=== PATIENT | female | born 1955 | race Caucasian/White ===

== ENCOUNTER 2023-07-12 20:37 | Outpatient (REF) | payer MEDICARE, MEDICAID, SELFPAY ==
[2023-07-20 15:09] LABS: Age Gdln ACOG Testing Note (.); Pap IG (Image Guided) Note (.)
== END 2023-07-12 20:38 | disposition home or self-care (01) ==
LOC: LAB 20:37
PROVIDERS: Visit Provider Physician Assistant
DX: Z01.419 Encounter for gynecological examination (general) (routine) without abnormal findings (principal)
CPT/HCPCS: G0145

== ENCOUNTER 2024-01-30 21:48 | Outpatient (REF) | payer MEDICARE, MEDICAID, SELFPAY ==
--- OUTSIDE RECORDS SUMMARY | 2024-01-30 21:53 | XMS_ITS | CCD ---
Author Organization [facility] Care Team Providers Care Manager Adobe Name Role Phone NG, AIDA S Admitting Unavailable NG, AIDA S Attending Unavailable LUZ MARIA VALADEZ Primary Care Unavailable CLINKER, GABRIELLE Consulting Unavailable CLINKER, GABRIELLE Admitting Unavailable CLINKER, GABRIELLE Attending Unavailable LUZ MARIA VALADEZ Primary Care Unavailable Valerie Morse Primary Care Provider Valerie Piña Attending Provider VALERIE MORSE Primary Care Physician [phone] Purnima Mcpherson Unavailable Unavailable MD Valerie Morse Primary Care Provider [phone] MD Valerie Morse Attending Provider [phone] MD Valerie Morse Referring Provider MD Valerie Piña Attending Provider [phone] MORALES LACY JR Attending UnavailMORALES Saucedo JR Referring Unavailabl CHRIS Alaniz Admitting Unavailab CHRIS Garnett Attending Unavailab CHRIS Garnett Referring Unavailab CHRIS Garnett Attending UnavailVALERIE Garcia Referring Unavailable MINI, VALERIE Negron Admitting Unavailable VALERIE MORSE Attending Unavailable MINI, VALERIE Negron Admitting Unavailable HILL, VALERIE Negron Attending Unavailable HILL, VALERIE Negron Admitting Unavailable HILLVALERIE Attending Unavailable RISALICECE JOHNATHAN Admitting Unavailable NICOLETTE PAYNENA Attending Unavailable CHRIS ADAN Admitting Unavailab CHRIS Garnett Attending MD Valerie Oconnor Primary Care Provider MD Valerie Piña Attending Provider JR. LACY GEORGE C Attending Unavailnaomi LACY JR., MORALES [place] Referring Unavaila BILLY España Attending Unavailable HILL, VALERIE Negron Attending Unavailable HILL, VALERIE L Referring Unavailable DIDIONLÓPEZ Attending Unavailable RISALITI, JOHNATHAN R Referring Unavailable RISALITI, JOHNATHAN R Referring Unavailable Hill, Valerie Primary Care Unavailable Haladay, Valerie Admitting Unavailable Haladay, Valerie Attending Unavailable Hill, Valerie Primary Care Unavailable Haladay, Valerie Admitting Unavailable Haladay, Valerie Attending Unavailable Hill, Valerie Primary Care Unavailable Hill, Valerie Attending Unavailable Hill, Valerie Referring Unavailable Hill, Valerie Admitting Unavailable COOK, Richie P Admitting Unavailable COOK, Richie Correia Attending Unavailable COOK, Richie P Referring Unavailable LOCO, CHRIS Lance Referring Unavailab le LOCO, CHRIS Lance Admitting Unavailab le LOCO, CHRIS Lance Attending Unavailab le Shannan, José Attending Unavailable Shannan, José Attending Unavailable Allergies Allergy Classification Reported Allergen(s) Allergy Type Date of Onset Reaction(s) Facility Unclassified (1 source) Allergy to substance [facility] (1 source) Sulfonamides (Antibiotic) Drug allergy (disorder) [address] [facility] (3 sources) Darvocet-N 100; Translations: [Darvocet-N 100] Drug allergy (disorder) [address] [facility] (13 sources) Latex; Translations: [Latex] Drug allergy rash [facility] (13 sources) Lisinopril; Translations: [lisinopril] Drug Allergy Cough (finding) [facility] (13 sources) Sulfonamides (Antibiotic); Translations: [sulfa drugs] Drug allergy [facility] (2 sources) Sulfamethoxazole ; Translations: [sulfamethoxazol e] Drug Allergy [facility] (1 source) Sulfonamides (Antibiotic) Drug allergy (disorder) 3 [facility] Repository Medications Current Medications Medication Drug Class(es) Dates Sig (Normalized) Sig (Original) Tylenol (11 sources) Start: 10-23-2019 Tylenol Oral, Refills(s) 0 Start Date: 10/23/19 Status: Ordered Albuterol (Eqv-ProAir HFA) 90 mcg/inh inhalation aerosol (10 sources) Start: 01-21-2024 End: 01-28-2024 take 2 puff(s) by inhalation every six hours Albuterol (Eqv-ProAir HFA) 90 mcg/inh inhalation aerosol 2 puff(s), Inhalation, q6hr for 7 day(s), 6.7 gm, Refill(s) 0, [facility], 165, cm, 01/21/24 11:35:00 EDT, Height/Length Dosing, 60.4, kg, 01/21/24 11:35:00 EDT, Weight Dosing Start Date: 01/21/24 Stop Date: 01/28/24 Status: Ordered Start: 09-23-2022 take 2 puff(s) by in halation every six hours Albuterol (Eqv-ProAir HFA) 90 mcg/inh inhalation aerosol 2 puff(s), Inhalation, q6hr Wheezing, 8.5 gm, Refill(s) 0, [facility], 165.1, cm, 09/23/22 13:32:00 EDT, Height/Length Dosing, 73, kg, 09/23/22 13:32:00 EDT, Weight Dosing Start Date: 09/23/22 Status: Ordered amLODIPine 5 mg oral tablet (11 sources) Dihydropyridine Calcium Channel Kourtney Start: 09-18-2016 take 2 tablets by mouth at bedtime amLODIPine 5 mg Tab 10 mg = 2 tab(s), Oral, Bedtime, Refills(s) 0, High blood pressure Start Date: 09/18/16 Status: Ordered azelastine hydrochloride 0.206 mg/actuat metered dose nasal spray (15 sources) Histamine-1 Receptor Antagonist Start: 09-23-2022 azelastine nasal 0.15% spray 1 spray(s), Nasal, BID for allergy symptoms, 30 mL, Refill(s) 0, [facility], 165.1, cm, 09/23/22 13:32:00 EDT, Height/Length Dosing, 73, kg, 09/23/22 13:32:00 EDT, Weight Dosing Start Date: 09/23/22 Status: Ordered Start: 10-23-2019 azelastine jerome al Nasal, BID, Refill(s) 0 Start Date: 10/23/19 Status: Ordered Prolia (6 sources) RANK Ligand Inhibitor Start: 10-23-2019 Prolia mg, SubCutaneous, q6mo, Refills(s) 0 Start Date: 10/23/19 Status: Ordered diclofenac sodium 0.01 mg/mg topical gel (9 sources) Nonsteroidal Anti-inflammatory Drug Start: 09-21-2022 diclofenac topical 1% gel Refill(s) 0 Start Date: 09/21/22 Status: Ordered doxycycline monohydrate 100 mg oral tablet (1 source) Tetracycline-class Drug Start: 01-21-2024 End: 01-28-2024 take 1 tablet by mouth twice daily doxycycline monohydrate 100 mg oral tablet 100 mg = 1 tab(s), Oral, BID, X 7 day(s), # 14 tab(s), Refills(s) 0, Pharmacy: [facility], 165, cm, 01/21/24 11:35:00 EDT, Height/Length Dosing, 60.4, kg, 01/21/24 11:35:00 EDT, Weight Dosing Start Date: 01/21/24 Stop Date: 01/28/24 Status: Ordered [id number] 0.3 ml EPINEPHrine 1 mg/ml auto-injector (9 sources) alpha-Adrenergic Agonist, beta-Adrenergic Agonist, Catecholamine Start: 09-21-2022 EpiPen 2-Joao 0.3 mg injectable kit Refills(s) 0 Start Date: 09/21/22 Status: Ordered ferrous gluconate 324 mg oral tablet (9 sources) Start: 09-21-2022 ferrous gluconate 324 mg (37.5 mg elemental iron) oral tablet Refills(s) 0 Start Date: 09/21/22 Status: Ordered fluticasone propionate 0.05 mg/actuat metered dose nasal spray (9 sources) Corticosteroid Start: 09-23-2022 take 1 spray(s) nasal route twice daily fluticasone Nasal 0.05 mg/inh [place] 1 spray(s), Nasal, BID, 16 gram, Refill(s) 0, each nostril, [facility], 165.1, cm, 09/23/22 13:32:00 EDT, Height/Length Dosing, 73, kg, 09/23/22 13:32:00 EDT, Weight Dosing Start Date: 09/23/22 Status: Ordered fluticasone 0.05 mg/inh Nasal [place] (6 sources) Start: 12-24-2016 fluticasone 0.05 mg/inh Nasal [place] 2 spray(s), Nasal, Daily Allergy symptoms, 16 gram, Refill(s) 0, each nostril, Allergy symptoms Start Date: 12/24/16 Status: Ordered gabapentin 300 mg oral capsule (11 sources) Anti-epileptic Agent Start: 11-10-2017 take 2 capsules by mouth at bedtime gabapentin 300 mg Cap 600 mg = 2 cap(s), Oral, Bedtime, # 60 cap(s), Refills(s) 0 Start Date: 11/10/17 Status: Ordered Plaquenil (11 sources) Antimalarial, Antirheumatic Agent Start: 02-24-2018 take 50 mg by mouth once daily in the morning Plaquenil 50 mg, Oral, qAM, Refills(s) 0, Arthritis Start Date: 02/24/18 Status: Ordered ibuprofen 800 mg oral tablet (11 sources) Nonsteroidal Anti-inflammatory Drug Start: 10-23-2019 take 1 mg by mouth three times daily ibuprofen 800 mg Tab mg tab(s), Oral, TID, Refills(s) 0 Start Date: 10/23/19 Status: Ordered losartan potassium 50 mg oral tablet (11 sources) Angiotensin 2 Receptor Kourtney Start: 10-23-2019 take 1 mg by mouth once daily losartan 50 mg Tab mg tab(s), Oral, Daily, Refills(s) 0 Start Date: 10/23/19 Status: Ordered nystatin [id number] unt/ml oral suspension (6 sources) Polyene Antifungal Start: 12-24-2016 take [id number] [IU] by mouth every six hours as needed nystatin 100,000 units/mL Oral Susp 100,000 unit(s) = 1 mL, Oral, q6hr, PRN i, # 4 fl oz, Refills(s) 0, Infection or prophylaxis for antibiotics Start Date: 12/24/16 Status: Ordered predniSONE 20 mg oral tablet (1 source) Start: 01-21-2024 End: 01-28-2024 take 3 tablets by mouth once daily predniSONE 20 mg Tab 3, Oral, Daily, X 7 day(s), # 21 tab(s), Refills(s) 0, Pharmacy: [facility], 165, cm, 01/21/24 11:35:00 EDT, Height/Length Dosing, 60.4, kg, 01/21/24 11:35:00 EDT, Weight Dosing Start Date: 01/21/24 Stop Date: 01/28/24 Status: Ordered Vitamin D3 (11 sources) Start: 02-24-2018 Vitamin D3 3000 IU, Oral, Daily, Refills(s) 0, Prophylaxis Start Date: 02/24/18 Status: Ordered Completed/Discontinued Medications Medication Drug Class(es) Dates Sig (Normalized) Sig (Original) ciprofloxacin 500 mg oral tablet (5 sources) Quinolone Antimicrobial Start: 09-08-2023 take 1 tablet by mouth once daily Cipro 500 mg Tab 500 mg = 1 tab(s), Oral, Daily, take one tab day before procedure and one tab after procedure, # 2 tab(s), Refills(s) 0, Pharmacy: [facility], 165, cm, 09/08/23 9:30:00 EDT, Height/Length Dosing, 60, kg, 09/08/23 9:30:00 EDT, Weight Dosing Start Date: 09/08/23 Status: Ordered Problems Active Problems Problem Classification Problem Date Documented Date Episodic/Chronic Acute bronchitis (1 source) Acute bronchitis; Translations: [Acute bronchitis, unspecified] Onset: 01-21-2024 Episodic Acute myocardial infarction (11 sources) Myocardial infarction 10-18-2013 Chronic Asthma (11 sources) Asthma 04-29-2013 Genitourinary symptoms and ill-defined conditions (6 sources) Stress incontinence (female) (male); Translations: [Genuine stress incontinence] Onset: 09-08-2023 Chronic Genitourinary symptoms and ill-defined conditions (20 sources) History of urinary tract infection; Translations: [Incomplete emptying of bladder] Onset: 09-08-2023 10-23-2019 Episodic Heart valve disorders (11 sources) Irregular heart beat 10-18-2013 Episodic Osteoporosis (1 source) Age-related osteoporosis without current pathological fracture; Translations: [Age-related osteoporosis without current pathological fracture] Onset: 05-30-2023 Chronic Other circulatory disease (1 source) Raynaud's syndrome without gangrene; Translations: [RAYNAUDS SYNDROME WITHOUT GANGRENE] Onset: 09-16-2017 Chronic Other circulatory disease (11 sources) Raynaud's disease 07-13-2013 Chronic Other circulatory disease (11 sources) H/O: hypertension 06-21-2012 Episodic Other connective tissue disease (11 sources) Fibromyalgia 12-26-2017 Episodic Other connective tissue disease (11 sources) Fibromyositis 04-29-2013 Episodic Other inflammatory condition of skin (11 sources) Lupus erythematosus 06-21-2012 Chronic Other nervous system disorders (4 sources) Polyneuropathy, unspecified; Translations: [POLYNEUROPATHY UNSPECIFIED] Onset: 09-14-2017 Chronic Other nutritional; endocrine; and metabolic disorders (11 sources) Body mass index 25-29 - overweight 10-23-2019 Episodic Spondylosis; intervertebral disc disorders; other back problems (1 source) Spondylosis, unspecified; Translations: [SPONDYLOSIS UNSPECIFIED] Onset: 09-16-2017 Chronic Systemic lupus erythematosus and connective tissue disorders (1 source) Systemic involvement of connective tissue, unspecified; Translations: [Systemic involvement of connective tissue, unspecified] Onset: 12-14-2023 Chronic Urinary tract infections (12 sources) Postinfective urethral stricture of female; Translations: [Postinfective urethral stricture, not elsewhere classified, female] Onset: 09-08-2023 10-23-2019 Episodic Past or Other Problems Problem Classification Problem Date Documented Da te Episodic/Chronic Immunizations and screening for infectious disease (1 source) Raised antibody titer; Translations: [Raised antibody titer] Onset: 06-15-2023 Episodic Unclassified (11 sources) multiple cysts 04-29-2013 Results Test Name Value Interpretation Reference Range Facility ED Clinical Summaryon 2023 ED Clinical Summary ED Clinical Summary [place] [id number] ED Clinical Summary Person Information Name: JING EID [place] Age: 68 Years : 1955 Sex: Female Language: Syriac PCP: VALERIE MORSE MD Marital Status: Single Visit Id: Visit Reason: Ear problem; Cough; Sinus Pain/Congestion; plugged ears, been sick for 3 days also has lupus Speciality: Acuity: 3 Enc Type: Emergency Med Service: Emergency Arrival: 01/21/2024 11:25:41 Discharge: 01/21/2024 12:41:52 LOS: 000 01:16 Checkin: 01/21/2024 11:25:41 Checkout: 01/21/2024 12:41:52 Dispo Type: Home (Routine DC) EVENTS: Event Name Event Status Request Date/Time Start Date/Time Complete Date/Time Arrive Complete 01/21/2024 11:25:41 01/21/2024 11:25:41 01/21/2024 11:25:41 Document Home Meds Request 01/21/2024 11:25:41 Triage Complete 01/21/2024 11:25:41 01/21/2024 11:35:17 01/21/2024 11:35:17 Bed Assign Complete 01/21/2024 11:27:40 01/21/2024 11:27:40 01/21/2024 11:27:40 Dr Exam Complete 01/21/2024 11:27:40 01/21/2024 11:27:46 01/21/2024 11:27:46 RN Exam Complete 01/21/2024 11:27:40 01/21/2024 11:39:46 01/21/2024 11:39:46 Registration Complete 01/21/2024 11:27:46 01/21/2024 11:27:52 01/21/2024 12:09:50 X-Ray Complete 01/21/2024 11:36:00 01/21/2024 11:50:04 01/21/2024 12:06:02 Pending Labs Complete 01/21/2024 11:36:00 01/21/2024 12:27:02 Lab Complete 01/21/2024 11:36:00 01/21/2024 12:27:02 EKG Complete 01/21/2024 11:36:00 01/21/2024 11:43:55 Wet Read Complete 01/21/2024 12:06:02 01/21/2024 12:08:17 01/21/2024 12:08:17 Reg Complete Request 01/21/2024 12:09:50 Reg Bed Request Complete 01/21/2024 12:09:50 01/21/2024 12:09:50 01/21/2024 12:09:50 Discharge Complete 01/21/2024 12:36:12 01/21/2024 12:41:58 01/21/2024 12:41:58 Transfer Complete 01/21/2024 12:41:58 01/21/2024 12:41:58 01/21/2024 12:41:58 ADDRESS: [address] [facility] [id number] PHYS DOC NOTES: MEDICAL INFORMATION: Prescriptions Given: New Medications [facility], [address], [place] [id number], [phone] doxycycline (doxycycline monohydrate 100 mg oral tablet) 1 Tablets By Mouth 2 times a day for 7 Days. Refills: 0. predniSONE (predniSONE 20 mg Tab) 3 By Mouth every day for 7 Days. Refills: 0. Medications to Continue Taking That Have Changed [facility], [address], [place] [id number], [phone] START: albuterol (Albuterol (Eqv-ProAir HFA) 90 mcg/inh inhalation aerosol) 2 Puffs Inhalation every 6 hours for 7 Days. Refills: 0. Other Medications START: albuterol (Albuterol (Eqv-ProAir HFA) 90 mcg/inh inhalation aerosol) 2 Puffs Inhalation every 6 hours as needed Wheezing. Refills: 0. Medications to Continue with No Changes Other Medications acetaminophen (Tylenol) By Mouth. amlodipine (amLODIPine 5 mg Tab) 2 Tablets By Mouth at bedtime. azelastine nasal (azelastine nasal 0.15% spray) 1 Sprays Nasal Inhalation 2 times a day as needed for allergy symptoms. Refills: 0. cholecalciferol (Vitamin D3) 3000 IU By Mouth every day. ciprofloxacin (Cipro 500 mg Tab) 1 Tablets By Mouth every day. take one tab day before procedure and one tab after procedure. Refills: 0. diclofenac topical (diclofenac topical 1% gel) epinephrine (EpiPen 2-Joao 0.3 mg injectable kit) ferrous gluconate (ferrous gluconate 324 mg (37.5 mg elemental iron) oral tablet) fluticasone nasal (fluticasone Nasal 0.05 mg/inh [place]) 1 Sprays Nasal Inhalation 2 times a day. each nostril. Refills: 0. gabapentin (gabapentin 300 mg Cap) 2 Capsules By Mouth at bedtime. hydroxychloroquine (Plaquenil) 50 Milligram By Mouth once a day (in the morning). ibuprofen (ibuprofen 800 mg Tab) By Mouth 3 times a day. losartan (losartan 50 mg Tab) By Mouth every day. PATIENT EDUCATION INFORMATION: Instructions: Follow up: With: Address: When: [address], [address] [place] [id number] Business (1) In 3 days DIAGNOSIS: Bronchitis, acute Normal [facility] ED Note-Physicianon 01-21-20 ED Note-Physician ED Note-Physician Basic Information Time Seen: José Campbell DO 01/21/2024 11:27 Chief Complaint pt to ER c/o congestion, cough. Pt states this started approx 3-4 days ago. Pt hx of lupus. pt also c/o muffled hearing and burning of the ears. History of Present Illness 68 female presents with upper respiratory infectious symptoms. Patient states that she been sick for the last 3 to 4 days she is concerned because she does have history of lupus. She states that she feels some burning in her ears bilaterally denies any sore throat has had a cough she describes this as productive. She does describe history of pulmonary disease but cannot further elaborate states that she is not a smoker. She has been taking kqce-hma-roqefwb medication she recently restarted her chronic steroids that she takes as needed as well. She was recently around a gathering of people and wonders if she could have come into contact with infectious etiology at that time. No chest pain no nausea vomiting no other associated symptoms or complaints. No other aggravating or relieving factors no other associated symptoms no other prior treatments or complaints. Family: Reviewed and noncontributory Social: lives at home Review of systems negative unless otherwise specified in the HPI. Physical Exam Vitals & Measurements T: 36.6 ?C(Oral) HR: 103(Peripheral) RR: 18 BP: 161/105 SpO2: 100% HT: 165 cm WT: 60.4 kg BMI: 22.19 Nurse's notes and vital signs reviewed. General: Alert, no acute distress, patient resting comfortably Patient is not toxic or lethargic. Skin: Warm, intact, no pallor noted. There is no evidence of rash at this time. Head: Normocephalic, atraumatic Eye: Normal conjunctiva Ears, Nose, Throat: Moist mucous membranes. No posterior pharyngeal erythema no exudate swelling shift or mass. No trisumus no stridor. Tympanic membranes unremarkable bilaterally no injection erythema no posterior effusions perforation or pus. Neck: No meningeal signs. Cardio: Regular Rate and Rhythm with normal peripheral perfusion Respiratory: No acute distress, no stridor, no retractions Abdomen: Nondistended Neurological: Appropriate for age Psychiatric: Cooperative Medical Decision Making Initial COVID testing is negative chest x-ray is benign. EKG is negative as well. Vital signs have improved. Ultimately patient will be treated with doxycycline steroids albuterol and follow-up closely in the outpatient setting as she is immunocompromised therefore antibiotics are indicated. She is to follow-up with her PCP return to ER if symptoms should change or worsen. []The patient has acute bronchitis/bronchioli tis and antibiotics were not prescribed or dispensed today.[SATISFIES MIPS PERFORMANCE] [x] The patient has acute bronchitis/bronchioli tis. Antibiotics were prescribed or dispensed because the patient meets one of the following: [MIPS PERFORMANCE EXCEPTION/EXCLUSION] [x] Patient has a medical reason for prescribing or dispensing an antibiotic. That reason is history of lung disease and being immunocompromised with her lupus and associated medications. [] Patient is currently on antibiotics or has been in the last 30 days. [] Patient's visit resulted in an inpatient admission. []The patient has acute bronchitis/bronchioli tisand antibiotics were prescribed or dispensed today. [DOES NOT SATISFY MIPS PERFORMANCE] Assessment/Plan Bronchitis, acute (J20.9: Acute bronchitis, unspecified) Orders: albuterol, 2 puff(s), Inhalation, q6hr for 7 day(s), 6.7 gm, Refill(s) 0, [facility], 165, cm, 01/21/24 11:35:00 EDT, Height/Length Dosing, 60.4, kg, 01/21/24 11:35:00 EDT, Weight Dosing doxycycline, 100 mg = 1 tab(s), Oral, BID, X 7 day(s), # 14 tab(s), Refills(s) 0, Pharmacy: [facility], 165, cm, 01/21/24 11:35:00 EDT, Height/Length Dosing, 60.4, kg, 01/21/24 11:35:00 EDT, Weight Dosing predniSONE, 3, Oral, Daily, X 7 day(s), # 21 tab(s), Refills(s) 0, Pharmacy: [facility], 165, cm, 01/21/24 11:35:00 EDT, Height/Length Dosing, 60.4, kg, 01/21/24 11:35:00 EDT, Weight Dosing ECG 12 Lead Adult Rapid COVID Antigen ([facility]) XR Chest 2 Views Disposition Plan Discharge Prescription List Prescriptions Albuterol (Eqv-ProAir HFA) 90 mcg/inh inhalation aerosol, 2 puff(s), Inhalation, q6hr doxycycline monohydrate 100 mg oral tablet, 100 mg= 1 tab(s), Oral, BID predniSONE 20 mg Tab, 3, Oral, Daily Follow-up With When Contact Information VALERIE MORSE In [address] [place], [place] [id number]- Business (1) Additional Instructions: Problem List/Past Medical History 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 Normal [facility] Comment on above: Result Comment: Elec tronically Signed By: José Campbell DO\.br\Date and Time Signed: 01/21/24 12:37 EDT ED Patient Education Noteon 01-21-2024 ED Patient Education Note ED Patient Education Note Normal [facility] ED Patient Summaryon 024 ED Patient Summary ED Patient Summary [address] [address] Patient Discharge Instructions Person Information Name: JING EID Age: 68 Years Arrival Date: 01/21/2024 11:25:41 Discharge Diagnosis: Bronchitis, acute Primary Care Physician: VALERIE MORSE MD Provider Information Primary Provider: José Campbell DO Advanced Management Scientist:None The exam and treatment you received in the Emergency Department were for an urgent problem and are not intended as complete care. It is important that you follow up with a doctor, nurse practitioner, or physician?s chef assistant for ongoing care. If your symptoms become worse or you do not improve as expected and you are unable to reach your usual health care provider, you should return to the Emergency Department. We are available 24 hours a day. JING EID has been given the following list of patient education materials, prescriptions and follow-up instructions: Follow-up Instructions: With: Address: When: VALERIE MORSE [address] [place] [address], [address] [place] [address] Business (1) In 3 days In the event that this physician does not participate in your insurance network, please consult with your insurance company to find a nearby participating provider. Patient Education Materials: A MESSAGE TO ALL PATIENTS REGARDING OPIOIDS PRESCRIPTION OPIOIDS: WHAT YOU NEED TO KNOW Prescription opioids can be used to help relieve yturacyb-ei-gpchos pain and are often prescribed following a surgery or injury, or for certain health conditions. These medications can be an important part of the treatment but also come with serious risks. It is important to work with your healthcare provider to make sure you are getting the safest, most effective care. WHAT ARE THE RISKS AND SIDE EFFECTS OF OPIOID USE? Prescription opioids carry serious risks of addiction and overdose, especially with prolonged use. An opioid overdose, often marked by slowed breathing, can cause sudden . The use of prescription opioids can have a number of side effects as well, even when taken as directed: ? Tolerance?meaning you might need to take more of the medication for the same pain relief ? Physical dependence?meaning you have symptoms of withdrawal when a medication is stopped ? Increased sensitivity to pain ? Constipation ? Nausea, vomiting, and dry mouth ? Sleepiness and dizziness ? Confusion ? Depression ? Low levels of testosterone that can result in lower sex drive, energy, and strength ? Itching and sweating RISKS ARE GREATER WITH: ? History of drug misuse, substance use disorder, or overdose ? Mental health conditions (such as depression or anxiety) ? Sleep apnea ? Older age (65 years and older) ? Avoid alcohol while taking prescription opioids. Also, unless specifically advised by your health care provider, medications to avoid include: ? Benzodiazepines (such as Xanax or Valium) ? Muscle relaxants (such as Soma or Flexeril) ? Hypnotics (such as Ambien or Lunesta) ? Other prescription opioids KNOW YOUR OPTIONS Talk to your health care provider about ways to manage your pain that don?t involve prescription opioids. Some of these options may actually work better and have fewer risks and side effects. Options may include: ? Pain relievers such as acetaminophen, ibuprofen, and naproxen ? Some medication that are also used for depression or seizures ? Physical therapy and exercise ? Cognitive behavioral therapy, a psychological, goal-directed approach, in which patients learn how to modify physical, behavioral, and emotional triggers of pain and stress. IF YOU ARE PRESCRIBED OPIOIDS FOR PAIN: ? Never take opioids in greater amounts or more often than prescribed. ? Follow up with your primary health care provider. o Work together to create a plan on how to manage your pain. o Talk about ways to help manage your pain that don?t involve prescription opioids. o Talk about any and all concerns and side effects. ? Help prevent misuse and abuse o Never sell or share prescription opioids. o Never use another person?s prescription opioids. ? Store prescription opioids in a secure place and out of reach of others (this may include visitors, children, friends, and family). ? Safely dispose of unused prescription opioids: Find your community drug take-back program or your pharmacy mail-back program, or flush them down the toilet, following guidance from the Food and Drug Administration (www.fda.gov/Drugs/Re sourcesForYou). ? Visit www.cdc.gov/drugoverd ose to learn about the risks of opioids abuse and overdose. ? If you believe you may be struggling with addiction, tell your health caregiver services home and ask for guidance or call SAM[employer]?S National Helpline at 3-877-448-EYPK. v Source: [place] Department of Health and (more content not included)... Normal [facility] MICRO OTHER TESTSOrdered By: Della Ewing on 01-21-2024 Rapid COV Int NEG Ctl Pass (01/21/24 11:45 AM) Normal [facility] Rapid COV Int POS Ctl Pass (01/21/24 11:45 AM) Normal [facility] SARS-CoV+SARS-CoV-2 (COVID-19) Ag IA.rapid Ql (Resp) Not Detected 1 (01/21/24 11:45 AM) Normal Not Detected [facility] Comment on above: Interpretive Data: Anel yao Yast Veritor System for Rapid Detection of SARS-CoV-2 is a chromatographic digital immunoassay intended for the direct and qualitative detection of SARS-CoV-2 nucleocapsid antigens in nasal swabs from individuals who are suspected of COVID-19 by their healthcare provider within the first five days of the onset of symptoms. Negative results should be treated as presumptive, do not rule out SARS-CoV-2 infection and should not be used as the sole basis for treatment or patient management decisions, including infection control decisions. Negative results should be considered in the context of a patient s recent exposures, history and the presence of clinical signs and symptoms consistent with COVID-19, and confirmed with a molecular assay, if necessary, for patient management. For in vitro diagnostic use. In the [place], only for use under an Emergency Use Authorization. In the [place], this test has not been FDA cleared or approved; this test has been authorized by FDA under an EUA for use by authorized laboratories; use by laboratories certified under the CLIA, 42 U.S.C. 263a, that meet requirements to perform moderate, high, or waived complexity tests and at the Point of Care (POC), i.e., in patient care settings operating under a CLIA Certificate of Waiver, Certificate of Compliance, or Certificate of Accreditation. This test has been authorized only for the detection of proteins from SARS-CoV-2, not for any other viruses or pathogens; and, in the [facility], this test is only authorized for the duration of the declaration that circumstances exist justifying the authorization of emergency use of in vitro diagnostics for detection and/or diagnosis of the virus that causes COVID-19 under Section 564(b)(1) of the Act, 21 U.S.C. 360bbb-3(b)(1), unless the authorization is terminated or revoked sooner. Rapid COVID Antigen ([facility])on 01-21-2024 Rapid COV Int NEG Ctl Pass Normal [facility] Comment on above: Performed By: #### 2 [id number] #### Brown [facility] [address] [place] [address] Rapid COV Int POS Ctl Pass Normal [facility] Comment on above: Performed By: #### 2 [id number] #### Kevin [facility] [address] [place] [address] SARS-CoV+SARS-CoV-2 (COVID-19) Ag IA.rapid Ql (Resp) Not detected Normal Not Detected [facility] Comment on above: Result Comment: The WeDidIt? System for Rapid Detection of SARS-CoV-2 is a chromatographic digital immunoassay intended for the direct and qualitative detection of SARS-CoV-2 nucleocapsid antigens in nasal swabs from individuals who are suspected of COVID-19 by their healthcare provider within the first five days of the onset of symptoms. Negative results should be treated as presumptive, do not rule out SARS-CoV-2 infection and should not be used as the sole basis for treatment or patient management decisions, including infection control decisions. Negative results should be considered in the context of a patient?s recent exposures, history and the presence of clinical signs and symptoms consistent with COVID-19, and confirmed with a molecular assay, if necessary, for patient management. For in vitro diagnostic use. In the [place], only for use under an Emergency Use Authorization. In the [place], this test has not been FDA cleared or approved; this test has been authorized by FDA under an EUA for use by authorized laboratories; use by laboratories certified under the CLIA, 42 U.S.C. ?263a, that meet requirements to perform moderate, high, or waived complexity tests and at the Point of Care (POC), i.e., in patient care settings operating under a CLIA Certificate of Waiver, Certificate of Compliance, or Certificate of Accreditation. This test has been authorized only for the detection of proteins from SARS-CoV-2, not for any other viruses or pathogens; and, in the [place], this test is only authorized for the duration of the declaration that circumstances exist justifying the authorization of emergency use of in vitro diagnostics for detection and/or diagnosis of the virus that causes COVID-19 under Section 564(b)(1) of the Act, 21 U.S.C. ? 360bbb-3(b)(1), unless the authorization is terminated or revoked sooner. Performed By: #### 2 [id number] #### [facility] [address] [place] [address] XR Chest 2 Viewson XR Chest 2 Views Exam Date/Time: 01/21/2024 12:06 EDT Reason for Exam: Difficulty breathing Report IMPRESSION: No acute radiographic abnormality. EXAMINATION: XR Chest 2 Views Clinical History: Difficulty breathing Comparison: 01/25/2018. RESULT: No consolidation. Hyperinflated lungs. No pleural effusion. No pneumothorax. Normal cardiomediastinal silhouette. No acute osseous findings. Ordering Provider: José Campbell FINAL REPORT Dictated: 01/21/2024 12:14 pm Bassem Brar MD Signed (Electronic Signature): 01/21/2024 12:14 pm Signed by: Bassem Brar MD Transcribed by: MADALYN Technologist: SCHUYLER Technical Comments Radiation Dose: Ka,r in mGy = na DAP = na Normal [facility] Automated basophil %Ordered By: Valerie Piña on 12-14-2023 Basophils/100 WBC (Bld) 0.1 % Normal . [facility] Comment on above: Performed By: #### C REAT, CRP, CBC, ESR, CK, ADDONUAPLUS #### [facility] [address] [place] [address] [place] #### C3, C4 #### [facility] , Automated basophil countOrde red By: Valerie Piña on 12-14-2023 Basophils (Bld) [#/Vol] 0.0 10*3/uL Normal 0.0-0.2 [facility] Comment on above: Performed By: #### C REAT, CRP, CBC, ESR, CK, ADDONUAPLUS #### [facility] [address] [place] [address] [place] #### C3, C4 #### [facility] , Automated blood monocyte cou ntOrdered By: Valerie Piña on 12-14-2023 Monocytes (Bld) [#/Vol] 0.5 10*3/uL Normal 0.0-0.8 [facility] Comment on above: Performed By: #### C REAT, CRP, CBC, ESR, CK, ADDONUAPLUS #### [place] [address] [place] #### C3, C4 #### [facility] , Automated eosinophil %Ordere d By: Valerie Piña on 12-14-2023 Eosinophils/100 WBC (Bld) 0.0 % Normal . [facility] Comment on above: Performed By: #### C REAT, CRP, CBC, ESR, CK, ADDONUAPLUS #### [place] [address] [place] #### C3, C4 #### [facility] , Automated eosinophil countOr dered By: Valerie Piña on 12-14-2023 Eosinophils (Bld) [#/Vol] 0.0 10*3/uL Normal 0.0-0.45 [facility] Comment on above: Performed By: #### C REAT, CRP, CBC, ESR, CK, ADDONUAPLUS #### [place] [address] [place] #### C3, C4 #### [facility] , Automated monocyte %Ordered By: Valerie Piña on 12-14-2023 Monocytes/100 WBC (Bld) 4.5 % Normal . [facility] Comment on above: Performed By: #### C REAT, CRP, CBC, ESR, CK, ADDONUAPLUS #### [facility] [address] [place] [address] [place] #### C3, C4 #### [facility] , Automated neutrophil %Ordere d By: Valerie Piña on 12-14-2023 Neutrophils/100 WBC (Bld) 87.5 % Normal . [facility] Comment on above: Performed By: #### C REAT, CRP, CBC, ESR, CK, ADDONUAPLUS #### [place] [address] [place] #### C3, C4 #### [facility] , Bacteria [Presence] in Urine by AutomatedOrdered By: Valerie Piña on 12-14-2023 Bacteria Auto Ql (U) None seen [HPF] None Seen [facility] Bilirubin Test strip Ql (U)O rdered By: Valerie Piña on 12-14-2023 Bilirubin Ql (U) Negative Negative [facility] C reactive protein [Mass/vol ume] in Serum or PlasmaOrdered By: Valerie Piña on 12-14-2023 CRP [Mass/Vol] < 0.5 mg/dL 0.0-0.5 [facility] C-Reactive Proteinon 024 CRP [Mass/Vol] mg/L Normal 0.0-0.5 [facility] Comment on above: Result Comment: PERF ORMED BY: [place] [address] PATHOLOGIST INSTRUCTIONAL FACILITATOR VENKATA SANCHEZ M.D. Performed By: #### C REAT, CRP, CBC, ESR, CK, ADDONUAPLUS #### [address] #### C3, C4 #### [facility] , Color of Urine by AutoOrdere d By: Valerie Piña on 12-14-2023 Color (U) Light-yellow Normal Yellow [facility] Comment on above: Order Comment: Name Collection Type:: Clean-Voided Midstream Performed By: #### E SR, CBC, CRP, ADDONUAPLUS, CREAT #### [address] #### C4, C3 #### [facility] , Complement C3on 12-14-2023 Complement C3 147 mg/dL Normal 82-167 [facility] Comment on above: Result Comment: Perf ormed at: - [facility] [address] [id number] [place] Worker: Gilberto Ward PhD, Phone: [phone] Performed By: #### C REAT, CRP, CBC, ESR, CK, ADDONUAPLUS #### [place] [address] [place] #### C3, C4 #### [facility] , Complement C4on 12-14-2023 Complement C4 28 mg/dL Normal 12-38 [facility] Comment on above: Result Comment: PERF ORMED BY: [place] [address] PATHOLOGIST INSTRUCTIONAL FACILITATOR VENKATA SANCHEZ M.D. Performed By: #### C REAT, CRP, CBC, ESR, CK, ADDONUAPLUS #### [address] #### C3, C4 #### [facility] , Complete Blood Count Auto Di ffon 12-14-2023 Mean Corpuscular HGB Conc 33.8 g/dL Normal 32.0-35.0 [facility] Comment on above: Performed By: #### C REAT, CRP, CBC, ESR, CK, ADDONUAPLUS #### [address] #### C3, C4 #### [facility] , NRBC% 0.1 /100{WBC} Normal 0-0.5 [facility] Comment on above: Performed By: #### C REAT, CRP, CBC, ESR, CK, ADDONUAPLUS #### [address] #### C3, C4 #### [facility] , Creatinineon 12-14-2023 GFR/1.73 sq M.predicted MDRD (S/P/Bld) [Vol rate/Area] mL/min/{1.73_m2} Normal [facility] Comment on above: Performed By: #### E SR, CBC, CRP, ADDONUAPLUS, CREAT #### [place] [address] [place] #### C4, C3 #### [facility] , Creatinine [Mass/volume] in Serum or PlasmaOrdered By: Valerie Piña on 12-14-2023 Creatinine [Mass/Vol] 0.74 mg/dL Normal 0.60-1.20 [facility] Comment on above: Performed By: #### E SR, CBC, CRP, ADDONUAPLUS, CREAT #### [address] #### C4, C3 #### [facility] , Dipstick and Microscopicon 0 12-14-2023 Bacteria,Urine None Seen Normal None Seen [facility] Comment on above: Order Comment: Name Collection Type:: Clean-Voided Midstream Performed By: #### E SR, CBC, CRP, ADDONUAPLUS, CREAT #### [address] #### C4, C3 #### [facility] , Bilirubin,Urine Negative Normal Negative [facility] Comment on above: Order Comment: Name Collection Type:: Clean-Voided Midstream Performed By: #### E SR, CBC, CRP, ADDONUAPLUS, CREAT #### [address] #### C4, C3 #### [facility] , Glucose Ql (U) Normal Normal Normal [facility] Comment on above: Order Comment: Name Collection Type:: Clean-Voided Midstream Performed By: #### E SR, CBC, CRP, ADDONUAPLUS, CREAT #### [address] #### C4, C3 #### [facility] , Hyaline Casts,Urine 9-19 High 0-8 [facility] Comment on above: Order Comment: Name Collection Type:: Clean-Voided Midstream Result Comment: PERF ORMED BY: [place] [address] PATHOLOGIST INSTRUCTIONAL FACILITATOR VENKATA SANCHEZ M.D. Performed By: #### E SR, CBC, CRP, ADDONUAPLUS, CREAT #### [place] [address] [place] #### C4, C3 #### [facility] , Nitrite,Urine Negative Normal Negative [facility] Comment on above: Order Comment: Name Collection Type:: Clean-Voided Midstream Performed By: #### E SR, CBC, CRP, ADDONUAPLUS, CREAT #### [address] #### C4, C3 #### [facility] , Occult Blood,Urine 1+ High Negative [facility] Comment on above: Order Comment: Name Collection Type:: Clean-Voided Midstream Performed By: #### E SR, CBC, CRP, ADDONUAPLUS, CREAT #### [address] #### C4, C3 #### [facility] , Protein,Urine Negative Normal Negative [facility] Comment on above: Order Comment: Name Collection Type:: Clean-Voided Midstream Performed By: #### E SR, CBC, CRP, ADDONUAPLUS, CREAT #### [address] #### C4, C3 #### [facility] , RBC,Urine 3-4 Normal 0-4 [facility] Comment on above: Order Comment: Name Collection Type:: Clean-Voided Midstream Performed By: #### E SR, CBC, CRP, ADDONUAPLUS, CREAT #### [address] #### C4, C3 #### [facility] , Specificy [place],Urine 1.010 Normal 1.001-1.030 [facility] Comment on above: Order Comment: Name Collection Type:: Clean-Voided Midstream Performed By: #### E SR, CBC, CRP, ADDONUAPLUS, CREAT #### [address] #### C4, C3 #### [facility] , Squamous Epithelial Cell,Urine 1-2 Normal 0-2 [facility] Comment on above: Order Comment: Name Collection Type:: Clean-Voided Midstream Performed By: #### E SR, CBC, CRP, ADDONUAPLUS, CREAT #### [address] #### C4, C3 #### [facility] , Urobilinogen,Urine Normal Normal Normal [facility] Comment on above: Order Comment: Name Collection Type:: Clean-Voided Midstream Performed By: #### E SR, CBC, CRP, ADDONUAPLUS, CREAT #### [address] #### C4, C3 #### [facility] , WBC,Urine 1-2 Normal 0-4 [facility] Comment on above: Order Comment: Name Collection Type:: Clean-Voided Midstream Performed By: #### E SR, CBC, CRP, ADDONUAPLUS, CREAT #### [address] #### C4, C3 #### [facility] , Epithelial cells.squamous [# /area] in Urine sediment by Automated countOrdered By: Valerie Piña on 12-14-2023 Epithelial cells.squamous Auto (Urine sed) [#/Area] 1-2 [HPF] 0-2 [facility] Erythrocyte Sedimentation Ra bettie 12-14-2023 ESR (Bld) [Velocity] 13 mm/h Normal 0-29 [facility] Comment on above: Result Comment: PERF ORMED BY: [place] [address] PATHOLOGIST INSTRUCTIONAL FACILITATOR VENKATA SANCHEZ M.D. Performed By: #### C REAT, CRP, CBC, ESR, CK, ADDONUAPLUS #### [address] #### C3, C4 #### [facility] , Erythrocyte distribution wid th [Ratio] by Automated countOrdered By: Valerie Piña on 12-14-2023 Erythrocyte distribution width (RBC) [Ratio] 13.2 % Normal 11.9-15.3 [facility] Comment on above: Performed By: #### C REAT, CRP, CBC, ESR, CK, ADDONUAPLUS #### [address] #### C3, C4 #### [facility] , Erythrocyte sedimentation ra te by Photometric methodOrdered By: Valerie Piña on 12-14-2023 ESR Photometric method (Bld) [Velocity] 13 mm/hr 0-29 [facility] Erythrocytes [#/area] in Uri ne sediment by Automated countOrdered By: Valerie Piña on 12-14-2023 RBC Auto (Urine sed) [#/Area] 3-4 [HPF] 0-4 [facility] Erythrocytes [#/volume] in B lood by Automated countOrdered By: Valerie Piña on 12-14-2023 RBC (Bld) [#/Vol] 4.91 10*6/uL Normal 3.60-5.00 [facility] Comment on above: Performed By: #### C REAT, CRP, CBC, ESR, CK, ADDONUAPLUS #### [place] [address] [place] #### C3, C4 #### [facility] , Glucose [Mass/volume] in Uri ne by Test stripOrdered By: Valerie Piña on 12-14-2023 Glucose Test strip (U) [Mass/Vol] Normal mg/dL Normal [facility] Hematocrit [Volume Fraction] of Blood by Automated countOrdered By: Valerie Piña on 12-14-2023 Hematocrit (Bld) [Volume fraction] 45.9 % Normal 34.0-46.4 [facility] Comment on above: Performed By: #### C REAT, CRP, CBC, ESR, CK, ADDONUAPLUS #### [place] [address] [place] #### C3, C4 #### [facility] , Hemoglobin Test strip Ql (U) Ordered By: Valerie Piña on 12-14-2023 Hemoglobin Ql (U) 1+ High Negative [facility] Hemoglobin [Mass/volume] in BloodOrdered By: Valerie Piña on 12-14-2023 Hemoglobin (Bld) [Mass/Vol] 15.5 g/dL High 11.8-15.4 [facility] Comment on above: Performed By: #### C REAT, CRP, CBC, ESR, CK, ADDONUAPLUS #### [facility] [address] [place] [address] [place] #### C3, C4 #### [facility] , Hyaline casts [#/area] in Ur ine sediment by Automated countOrdered By: Valerie Piña on 12-14-2023 Hyaline casts Auto (Urine sed) [#/Area] 9-19 [LPF] High 0-8 [facility] Ketones [Presence] in Urine by Test stripOrdered By: Valerie Piña on 12-14-2023 Ketones Ql (U) Negative Normal Negative [facility] Comment on above: Order Comment: Name Collection Type:: Clean-Voided Midstream Performed By: #### E SR, CBC, CRP, ADDONUAPLUS, CREAT #### [place] [address] [place] #### C4, C3 #### [facility] , Leukocyte esterase [Presence ] in Urine by Test stripOrdered By: Valerie Piña on 12-14-2023 Leukocyte esterase Test strip Ql (U) Negative Normal Negative [facility] Comment on above: Order Comment: Name Collection Type:: Clean-Voided Midstream Performed By: #### E SR, CBC, CRP, ADDONUAPLUS, CREAT #### [place] [address] [place] #### C4, C3 #### [facility] , Leukocytes [#/area] in Urine sediment by Automated countOrdered By: Valerie Piña on 12-14-2023 WBC Auto (Urine sed) [#/Area] 1-2 [HPF] 0-4 [facility] Leukocytes [#/volume] correc serafin for nucleated erythrocytes in Blood by Automated counOrdered By: Valerie Piña on 12-14-2023 WBC corrected for nucl RBC Auto (Bld) [#/Vol] 11.5 10*3/uL 3.8-11.6 [facility] Leukocytes [#/volume] in Blo od by Automated countOrdered By: Valerie Piña on 12-14-2023 WBC (Bld) [#/Vol] 11.5 10*3/uL Normal 3.8-11.6 [facility] Comment on above: Performed By: #### C REAT, CRP, CBC, ESR, CK, ADDONUAPLUS #### [facility] [address] [place] [address] #### C3, C4 #### [facility] , Lymphocytes [#/volume] in Bl ood by Automated countOrdered By: Valerie Piña on 12-14-2023 Lymphocytes (Bld) [#/Vol] 0.9 10*3/uL Low 1.00-4.8 [facility] Comment on above: Performed By: #### C REAT, CRP, CBC, ESR, CK, ADDONUAPLUS #### [place] [address] [place] #### C3, C4 #### [facility] , Lymphocytes/100 leukocytes i n Blood by Automated countOrdered By: Valerie Piña on 12-14-2023 Lymphocytes/100 WBC (Bld) 7.9 % Normal . [facility] Comment on above: Performed By: #### C REAT, CRP, CBC, ESR, CK, ADDONUAPLUS #### [facility] [address] [place] [address] [place] #### C3, C4 #### [facility] , MCH [Entitic mass] by Automa serafin countOrdered By: Valerie Piña on 12-14-2023 MCH (RBC) [Entitic mass] 31.6 pg Normal 24.7-34.3 [facility] Comment on above: Performed By: #### C REAT, CRP, CBC, ESR, CK, ADDONUAPLUS #### [facility] [address] [place] [address] [place] #### C3, C4 #### [facility] , MCHC Auto (RBC) [Mass/Vol]Or dered By: Valerie Piña on 12-14-2023 MCHC (RBC) [Mass/Vol] 33.8 g/dL 32.0-35.0 [facility] MCV [Entitic volume] by Auto mated countOrdered By: Valerie Piña on 12-14-2023 MCV (RBC) [Entitic vol] 93.4 fL Normal 80-100 [facility] Comment on above: Performed By: #### C REAT, CRP, CBC, ESR, CK, ADDONUAPLUS #### [facility] [address] [place] [address] #### C3, C4 #### [facility] , Neutrophils [#/volume] in Bl ood by Automated countOrdered By: Valerie Piña on 12-14-2023 Neutrophils (Bld) [#/Vol] 10.1 10*3/uL High 1.8-7.7 [facility] Comment on above: Performed By: #### C REAT, CRP, CBC, ESR, CK, ADDONUAPLUS #### [facility] [address] [place] [address] [place] #### C3, C4 #### [facility] , Nitrite Test strip Ql (U)Ord ered By: Valerie Piña on 12-14-2023 Nitrite Ql (U) Negative Negative [facility] No Panel InformationOrdered By: Valerie Piña on 12-14-2023 Estimated GFR (CKD-EPI) > 60.0 mL/Min [facility] Creatinine Clearance (Chem N/A [facility] Nucleated erythrocytes [Pres ence] in Blood by Automated countOrdered By: Valerie Piña on 12-14-2023 Nucleated RBC Auto Ql (Bld) 0.1 /100{WBC} 0-0.5 [facility] Platelet mean volume [Entiti c volume] in Blood by Automated countOrdered By: Valerie Piña on 12-14-2023 Platelet mean volume (Bld) [Entitic vol] 7.8 fL Normal 6.3-10.7 [facility] Comment on above: Performed By: #### C REAT, CRP, CBC, ESR, CK, ADDONUAPLUS #### [facility] [address] [place] [address] #### C3, C4 #### [facility] , Platelets [#/volume] in Bloo d by Automated countOrdered By: Valerie Piña on 12-14-2023 Platelets (Bld) [#/Vol] 269 10*3/uL Normal 150-450 [facility] Comment on above: Performed By: #### C REAT, CRP, CBC, ESR, CK, ADDONUAPLUS #### [address] #### C3, C4 #### [facility] , Protein Test strip (U) [Mass /Vol]Ordered By: Valerie Piña on 12-14-2023 Protein (U) [Mass/Vol] Negative Negative [facility] Specific gravity Test strip (U) [Rel density]Ordered By: Valerie Piña on 12-14-2023 Specific gravity (U) [Rel density] 1.010 1.001-1.030 [facility] Urine appearanceOrdered By: Valerie Piña on 12-14-2023 Appearance (U) Clear Normal Clear [facility] Comment on above: Order Comment: Name Collection Type:: Clean-Voided Midstream Performed By: #### E SR, CBC, CRP, ADDONUAPLUS, CREAT #### [place] [address] [place] #### C4, C3 #### [facility] , Urobilinogen Test strip (U) [Mass/Vol]Ordered By: Valerie Piña on 12-14-2023 Urobilinogen (U) [Mass/Vol] Normal mg/dL Normal [facility] pH of Urine by Test stripOrd ered By: Valerie Piña on 12-14-2023 pH (U) 5.5 [pH] Normal 5.0-9.0 [facility] Comment on above: Order Comment: Name Collection Type:: Clean-Voided Midstream Performed By: #### E SR, CBC, CRP, ADDONUAPLUS, CREAT #### [facility] [address] [place] [address] [place] #### C4, C3 #### [facility] , Inpatient Patient Summaryon 11-07-2023 Inpatient Patient Summary Inpatient Patient Summary [place] [id number] Clinical Summary Person Information Name: JING EID Age: 68 Years : 1955 Sex: Female PCP: VALERIE MORSE MD Marital Status: Single Race: White Ethnicity: Non- or Language: Syriac Visit Id: Visit Reason: HEMATURIA, URINARY INCONTINENCE Speciality: Acuity: Enc Type: Outpatient Med Service: Surgery Arrival: 11/07/2023 13:43:11 Discharge: Dispo Type: Address: [address] [place] [id number] Provider Notes: Diagnosis: Problems Active Stress incontinence Raynaud's disease LE - Lupus 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 Microscopic hematuria Nocturia Frequency of urination BMI 28.0-28.9,adult Incomplete bladder emptying H/O urinary tract infection Postinfective urethral stricture in female Fibromyalgia Smoking Status: Functional Status: Sensory Deficits: History of Falls: Mobility Assistance Prior to Admission: ADLs: Current Level of Assistance for Self-Care/Mobility: Cognitive Status: Allergies sulfa drugs Latex (rash) lisinopril (Cough) Laboratory or Other Results This Visit (last charted value for your 11/07/2023 visit) No Laboratory or Other Results This Visit Measurements: Height: Weight: Blood Pressure: Not Valued / Not Valued BMI: Procedures No Procedures Documented Immunizations No Immunizations Documented This Visit Final Med List: acetaminophen (Tylenol) By Mouth. albuterol (Albuterol (Eqv-ProAir HFA) 90 mcg/inh inhalation aerosol) 2 Puffs Inhalation every 6 hours as needed Wheezing. Refills: 0. amlodipine (amLODIPine 5 mg Tab) 2 Tablets By Mouth at bedtime. azelastine nasal (azelastine nasal 0.15% spray) 1 Sprays Nasal Inhalation 2 times a day as needed for allergy symptoms. Refills: 0. cholecalciferol (Vitamin D3) 3000 IU By Mouth every day. ciprofloxacin (Cipro 500 mg Tab) 1 Tablets By Mouth every day. take one tab day before procedure and one tab after procedure. Refills: 0. diclofenac topical (diclofenac topical 1% gel) epinephrine (EpiPen 2-Joao 0.3 mg injectable kit) ferrous gluconate (ferrous gluconate 324 mg (37.5 mg elemental iron) oral tablet) fluticasone nasal (fluticasone Nasal 0.05 mg/inh [place]) 1 Sprays Nasal Inhalation 2 times a day. each nostril. Refills: 0. gabapentin (gabapentin 300 mg Cap) 2 Capsules By Mouth at bedtime. hydroxychloroquine (Plaquenil) 50 Milligram By Mouth once a day (in the morning). ibuprofen (ibuprofen 800 mg Tab) By Mouth 3 times a day. losartan (losartan 50 mg Tab) By Mouth every day. Care Team Members: Attending Physician: Richie LI MD Consulting Physician: Referring Physician: Richie LI MD Follow up: With: Address: When: Richie LI [address] [place] [address], [address], [place] [id number] [facility] (1) Within 6 months Comments: Please make a follow-up visit with one of our SEDA's. You had seen Anabel Adan PA-C previously. Please finish your antibiotics and have a great day! I will consider the blood in the urine workup complete at this point. Patient Education Information: EU - Cystoscopy Discharge Instructions (Custom) Brandie [facility] Main OR Intraoperative Recor don 11-07-2023 Main OR Intraoperative Record Main OR Intraoperative Record IntraOp Document Type FTURO Summary Primary Physician: Richie LI MD Finalized Date/Time: 11/07/23 14:07:21 Pt. Name: JING EID /Sex: 1955 Female Med Rec #: [id number] Physician: Richie LI MD Financial #: [id number] Pt. Type: O Room/Bed: / Admit/Disch: 11/07/23 13:43:11 - Institution: Case Times FTURO Entry 1 Patient Times In Room 11/07/23 13:56:00 Out Room 11/07/23 14:06:00 Procedure Times Start 11/07/23 14:00:00 Stop 11/07/23 14:02:00 Anesthesia Times Last Modified By: Heather Hu 11/07/23 14:07:07 Case Attendance FTURO Entry 1 Entry 2 Entry 3 Case Attendee Richie LI MD, Kelsie E McClain POWER LINE LINEMANHaydee Role Performed Surgeon - Primary Home Paraprofessional - Primary Scrub - Primary Time In 11/07/23 13:56:00 11/07/23 13:56:00 11/07/23 13:56:00 Time Out 11/07/23 14:06:00 11/07/23 14:06:00 11/07/23 14:06:00 Procedure CYSTOSCOPY LOCAL WITH CYSTOSCOPY LOCAL WITH CYSTOSCOPY LOCAL WITH URETHRAL DILATION(.) URETHRAL DILATION(.) URETHRAL DILATION(.) Comments Last Modified By: Heather Hu Kelsie E Burgderfer, Kelsie E 11/07/23 14:07:08 11/07/23 14:07:08 11/07/23 14:07:08 Surgical Procedures FTURO Entry 1 Procedure Description Procedure CYSTOSCOPY LOCAL WITH Modifiers . URETHRAL DILATION Surgeon Description CYSTO LOCAL Primary Procedure Yes Primary Surgeon Richie LI MD Start 11/07/23 14:00:00 Stop 11/07/23 14:02:00 Anesthesia Type Local Surgical Service Urology Wound Class 2 - Clean-Contaminated Last Modified By: Heather Hu 11/07/23 14:07:09 General Case Data FTURO Pre-Care Text: Classifies surgical wound, implements aseptic technique, initiates traffic control Entry 1 Case Information OR URO 1 FT Case Level None Wound Class 2 - Clean-Contaminated Specialty Urology Preop Diagnosis HEMATURIA, URINARY Postop Same As Preop Yes INCONTINENCE Postop Diagnosis HEMATURIA, URINARY Outcomes Met? Yes INCONTINENCE Last Modified By: Heather Hu 11/07/23 13:57:12 Post-Care Text: The patient is free from signs and symptoms of infection EU IntraOp - FTURO Pre-Care Text: Implements protective measures prior to operative or invasive procedure, confirms identity before the operative or invasive procedure, verifies operative procedure, surgical site, and laterality Entry 1 EU Perioperative Protocols Procedure(s) CYSTOSCOPY LOCAL WITH Patient Identity Birthday, ID Band URETHRAL DILATION(.) Verified (select at Check, Patient least 2): Participation Consents / H and P HandP, Surgery/Procedure Operative Site N/A Verified Consent Marking Verified Surgical Site Yes Laterality Verified n/a Verified Procedure Verified Yes Correct Patient Yes Position Verified Availability Equipment, Medication Time Out GUILLERMO DOSS, Richie Correia, Verified (If Participants Heather Hu, Applicable) Haydee Stanton CST Time Out Complete 11/07/23 13:58:00 Allergies Reviewed? Yes Allergies Reviewed Self/Patient With Body Position Low Lithotomy Prep Area VAGINA Prep Agents Betadine Solution Skin. Condition Unable to Visualize Description N/A Additional None Specimens Comment N/A Specimens Collected Vitals - EU Blood Pressure 159/95 Pulse 93 bpm Respirations 14 br/min SPO2 99 % EBL 0 IandO - EU Total Intake 0 mL Total Output 0 mL Outcomes Met? Yes Last Modified By: Hetaher Hu 11/07/23 13:59:22 Post-Care Text: The patient is free from signs and symptoms of injury caused by extraneous objects Sign Out FTURO Entry 1 Before Patient Leaves OR Nurse verbally Yes Nurse verbally n/a confirms with the confirms with the team the name of team that the procedure(s) instrument, sponge, recorded and needle counts are correct (or N/A) Nurse verbally n/a Nurse verbally Yes confirms with the confirms with the team how the team whether there specimen is labeled are any equipment (including patient problems to be name), if applicable addressed Sign Out Complete 11/07/23 14:02:00 Last Modified By: Heather Hu 11/07/23 14:02:54 Case Comments Finalized By: Heather Hu Document Signatures Signed By: Heather Hu 11/07/23 14:07 Heather Hu 11/07/23 14:07 Normal [facility] Main OR Preoperative Recordo n 11-07-2023 Main OR Preoperative Record Main OR Preoperative Record Holding Area Document Type FTURO Summary Primary Physician: Richie LI MD Finalized Date/Time: 11/07/23 13:57:59 Pt. Name: JING EID Yue Anthony/Sex: 1955 Female Med Rec #: [id number] Physician: Richie LI MD Financial #: [id number] Pt. Type: O Room/Bed: / Admit/Disch: 11/07/23 13:43:11 - Institution: Case Times Holding FTURO Pre-Care Text: Verifies consent for planned procedure, identifies individual values and wishes concerning care, includes family members in perioperative teaching Secures patient's records' belongings, and valuables, maintains patient's dignity and privacy, and maintains patient confidentiality Entry 1 In Holding 11/07/23 13:50:00 Outcomes Met? Yes Last Modified By: Gilma MIRELES, Roxanne CASTANEDA 11/07/23 13:50:31 Post-Care Text: The patient participates in decisions affecting his or her perioperative plan of care The patient's right to privacy is maintained Surgery Checklist FTURO Entry 1 Patient Birthday, ID Band Procedure History and Physical, Identification: Check, Patient Verification: Surgical Consent, With Participation Patient Personal Items clothes Limitations: none Comment: Complaints of Pain: No Skin Integrity Unable to Visualize Vitals - EU Blood Pressure 159/95 Pulse 93 bpm Respirations 14 br/min SPO2 RN Reviewed Yes Last Modified By: Heather Hu 11/07/23 13:57:48 Finalized By: Heather Hu Document Signatures Signed By: Heather Hu 11/07/23 13:57 Gilma MIRELES, Roxanne CASTANEDA 11/07/23 13:55 Heather Hu 11/07/23 13:57 Heather Hu 11/07/23 13:57 Normal [facility] Operative Reporton Operative Report Operative Report Patient: JING EID Age: 68 years Sex: Female : 1955 Associated Diagnoses: None Author: Richie LI MD Procedure Operative Information Details: Date/ Time: 11/07/2023 14:06:00. Pre-Op Dx: Microhematuria ([id number] R31.29, Working, Medical). Post-Op Dx: Same. Anesthesia Type: Local. Procedure: Local Cystoscopy. Complications: None. Risks/Benefits/Inform ed Consent: Surgical risks, benefits, details of the procedure have been explained to the patient, Full informed consent has been obtained. Intraoperative Information Prepped: Patient is brought back to the endoscopy suite, Patient is placed in supine position, Patient prepped in the usual fashion with Betadine solution, 2% Xylocaine Jelly is placed per Urethra, After waiting several minutes the Cystoscope is introduced. The Urethra is: Normal. The Bladder is: Normal, Trabeculated Mild (1), No tumors, no stones . The ureteral orifices: Show efflux of clear urine. Devices Implanted: None. Removal: Cystoscope is removed, The patient tolerated it well. Postoperative Information Discharge: Patient is discharged home with antibiotic coverage, Follow up arranged, Discussed that with the negative CT urogram, negative urine cytology, and now negative cystoscopy, I would consider the hematuria workup complete. Follow-up with Anabel Adan, our physician chef assistant in about 6 months. . Normal [facility] Comment on above: Result Comment: Elec tronically Signed By: Richie LI MD\.br\Date and Time Signed: 11/07/23 14:07 EDT Outpatient Surgery Discharge Instructionon 11-07-2023 Outpatient Surgery Discharge Instruction Outpatient Surgery Discharge Instruction [address] [address] Patient Discharge Instructions PERSON INFORMATION Name: JING EID Date of : 1955 Current Date: 11/07/2023 14:06:21 PHYSICIANS Admitting Physician: Richie LI MD Comment: Discharge Diagnosis: JING EID has been given the following list of follow-up instructions, prescriptions, and patient education materials: IF UNABLE TO CONTACT YOUR PHYSICIAN AND YOU FEEL IT IS AN EMERGENCY, GO TO THE NEAREST EMERGENCY ROOM OR CALL 911 Follow up: With: Address: When: Richie WHITTAKER, [address], [facility] [address] [place] [phone] [facility] (1) Within 6 months Comments: Please make a follow-up visit with one of our SEDA's. You had seen Anabel Adan PA-C previously. Please finish your antibiotics and have a great day! I will consider the blood in the urine workup complete at this point. Comment: PATIENT EDUCATION INFORMATION Instructions: Cystoscopy ? Voiding after the procedure: there may be some pain, burning, urgency, frequency and blood tinged urine following the procedure. These symptoms usually resolve within 2-5 days. Drink the amount of fluid it takes to keep the urine pink to yellow or clear in color. Drinking enough water and fluids will help to ease any discomfort after your procedure. ? If you are having problems that seem out of the ordinary, please call. ? If unable to contact your physician and you feel it is an emergency, go to the nearest emergency room or call 911 ? Diet ? you may resume your normal diet. ? Activity ? you may resume your normal activities ? Call if you have a fever over 100 degrees. IRAGINI DEBORAH K, have received the attached patient education materials/instruction s and have verbalized understanding: May we do a follow up call? Yes No I was present when discharge instructions were given Patient Signature Date Clinican/Nurse Signature Date You may receive a survey from [employer] asking you to rate your care experience. Your feedback is important and will help us understand what we do well and how we can improve the quality of care we provide to you, your loved ones and our community. It?s an honor to serve you. Thank you for choosing [facility] Normal [facility] Reminderson 11-07-2023 Reminders Reminders From: Yesy Garcia To: EU - Administrative; Sent: 11/07/2023 14:31:20 EDT Show up: 03/09/2024 13:31:00 EST Subject: 6 MO F/U Due Date/Time: 05/09/2024 13:31:00 EST Reminder/Recall PATIENT HAD CYSTO W/ UD DONE ON 11/07/2023. PATIENT NEEDS A 6 MO F/U W/ ETELVINA IN [place]. APPT DUE BY 05/09/2023 Normal [facility] CT Urogramon 09-21-2023 CT Urogram Exam Date/Time: 09/19/2023 10:49 EDT Reason for Exam: Hematuria, microscopic, increased risk for urinary tract malignancy;Other (please specify) Report IMPRESSION: No suspicious renal lesions. No hydronephrosis or nephrolithiasis. Bladder partially decompressed and not well evaluated, without focal wall thickening on this study. Correlate with urinalysis and cystoscopy as clinically indicated. EXAMINATION: CT Urogram HISTORY: Hematuria, microscopic, increased risk for urinary tract malignancy. Surgical history of hysterectomy and appendectomy. Denies cancer history. TECHNIQUE: CT protocol including unenhanced, renal parenchymal phase and excretory phase renal imaging was obtained following IV contrast. Including dedicated 3-D MIP reconstructions in coronal and sagittal plane on the delayed phase images. Unless otherwise stated, incidental findings on this study do not require follow-up. All CT scans at this facility use dose modulation, iterative reconstruction, and/or weight based dosing when appropriate to reduce radiation dose to as low as reasonably achievable. COMPARISON: None. RESULT: Kidneys and urinary tract: No calculus or hydronephrosis. No suspicious renal lesions. No suspicious filling defects within the opacified ureters. Bladder partially decompressed without focal filling defect. Abdomen and Pelvis: Liver: 2.5 cm benign cyst within the medial right hepatic dome. Few additional smaller cysts especially near the gallbladder. Focal fat deposition falciform ligament. Biliary: Gallbladder unremarkable. No biliary ductal dilation. Pancreas: No mass or duct dilation. Spleen: No mass or splenomegaly. Report Adrenals: No mass. GI tract: No bowel dilation. Portions of the colon are decompressed and not well evaluated. No evidence for acute diverticulitis. Scattered colonic feces. Lymph nodes: No abdominal or pelvic lymphadenopathy. Mesentery/Peritoneum/ Retroperitoneum: No ascites or mass. Vasculature: The celiac axis and SMA are patent. The portal vein and branches, splenic vein, SMV, and hepatic veins are patent. Mild arterial atherosclerotic disease without aneurysm. Pelvis: Hysterectomy. No significant free fluid. Pelvic phleboliths. Bones: No acute osseous findings. Underlying decreased bone mineral density. Grade 1 anterolisthesis of L5 on S1 secondary to chronic bilateral L5 pars defects, with severe disc height loss at L5-S1. Soft tissues: Unremarkable. Lower thorax: Unremarkable. Ordering Provider: , FINAL REPORT Dictated: 09/21/2023 11:27 am Bassem Brar MD Signed (Electronic Signature): 09/21/2023 11:27 am Signed by: Bassem rBar MD Transcribed by: MADALYN Technologist: ABY Technical Comments GFR (mL/min/1/73m2) >60 Contrast: Isovue 300 Contrast amount in ml's: 100 Rectal Contrast Given? No Normal [facility] CHEMISTRYOrdered By: SYSTEM SYSTEM on 09-19-2023 Creatinine [Mass/Vol] 0.7 mg/dL Normal 0.5 - 1.3 mg/dL Remisol Chem eGFR 94 mL/min/1.73 m2 Normal >=59mL/min /1 .73 m2 Remisol Chem Consent for Treatmenton 08-31 Consent for Treatment [id number]#1 .00TIFF Normal [facility] Creatinineon 09-19-2023 Creatinine [Mass/Vol] 0.7 mg/dL Normal 0.5-1.3 [facility] Comment on above: Performed By: #### 2 [id number] #### [facility] [address] [place] [address] eGFRon 09-19-2023 eGFR 94 mL/min/1.73 m2 Normal >=59 [facility] Comment on above: Order Comment: Order added by Discern Expert. Performed By: #### 1 [id number] #### [facility] [address] [place] [address] Physician Orderon 09-16-2023 Physician Order [id number] 1.00TIFF Normal [facility] Urine Cytology ([facility])on 09-13-2023 Microscopic exam Cytology (U) [Interp] Diagnosis Info Invalid Interpretation Code [facility] Comment on above: Result Comment: A:Ur ine,Urine:Voided Interpretation - MicroScopic Description - Adequacy - Gross Description Site ID:A color light Yellow fixative Alcohol Specimen designated Urine received in alcohol preservative and labeled with the patient?s name, consists of 80ml clear light yellow fluid. Electronically signed by : on: 09/13/2023 14:09:21 Performed By: #### 1 [id number] ####[facility] [id number] [place] [address] Physician Referralon 024 Physician Referral [id number]. 00TIFF Normal [facility] Screenson 09-09-2023 Screens [id number]# 1.00TIFF Normal [facility] Ambulatory Visit Summaryon 0 09-08-2023 Ambulatory Visit Summary JING EID :1955 Visit Date:09/08/2023 Ambulatory Visit Instructions Your Diagnosis Microscopic hematuria Frequency of urination Stress incontinence Postinfective urethral stricture in female Your Care Team Attending Physician - LOCO PEREZ, JOLEEN Lance Primary Care Physician - VALERIE MORSE MD Referring Physician - VALERIE MORSE MD This Is Your Medications List Contact prescribing physician if questions or concerns acetaminophen (Tylenol) albuterol (Albuterol (Eqv-ProAir HFA) 90 mcg/inh inhalation aerosol) amlodipine (amLODIPine 5 mg Tab) azelastine nasal (azelastine nasal 0.15% spray) cholecalciferol (Vitamin D3) diclofenac topical (diclofenac topical 1% gel) epinephrine (EpiPen 2-Joao 0.3 mg injectable kit) ferrous gluconate (ferrous gluconate 324 mg (37.5 mg elemental iron) oral tablet) fluticasone nasal (fluticasone Nasal 0.05 mg/inh [place]) gabapentin (gabapentin 300 mg Cap) hydroxychloroquine (Plaquenil) ibuprofen (ibuprofen 800 mg Tab) losartan (losartan 50 mg Tab) Procedures Performed Cystourethroscopy with dilation of urethral stricture (12/15/2017), Colonoscopy, Hysterectomy. Discharge Vitals Temperature (Temporal Artery) 36.7 ?C Heart Rate (Peripheral) 71 Respiratory Rate 16 Blood Pressure 118/71 Height 165 cm Height 65 in Weight 60 kg Weight 132 lb BMI 22.04 What to do next You Need to Schedule the Following Appointments Follow Up with GUILLERMO DOSS, NEREIDA Collier When: Comments: sched cysto/poss UD Where: [address] [address]- You Need to Complete the Following CT Urogram, *Est. 09/22/23 +/- 14 day(s), Routine, Order for future visit, Transport Mode: Wheelchair, Reason: Other (please specify), Reason: Hematuria, microscopic, increased risk for urinary tract malignancy, No, No, Microscopic hematuria, [email or web address]. .. Medications What How Much When Instructions Unchanged acetaminophen (Tylenol) By Mouth Contact prescribing physician if questions or concerns Unchanged albuterol (Albuterol (Eqv-ProAir HFA) 90 mcg/ inh inhalation aerosol) 2 Puffs Inhalation Every 6 hours as needed for Wheezing Contact prescribing physician if questions or concerns Unchanged amlodipine (amLODIPine 5 mg Tab) 2 Tablets By Mouth At bedtime Contact prescribing physician if questions or concerns Unchanged azelastine nasal (azelastine nasal 0.15% spray) 1 Sprays Nasal Inhalation 2 times a day as needed for for allergy symptoms Contact prescribing physician if questions or concerns Unchanged cholecalciferol (Vitamin D3) 3000 IU By Mouth Every day Contact prescribing physician if questions or concerns Unchanged diclofenac topical (diclofenac topical 1% gel) Contact prescribing physician if questions or concerns Unchanged epinephrine (EpiPen 2-Joao 0.3 mg injectable kit) Contact prescribing physician if questions or concerns Unchanged ferrous gluconate (ferrous gluconate 324 mg (37.5 mg elemental iron) oral tablet) Contact prescribing physician if questions or concerns Unchanged fluticasone nasal (fluticasone Nasal 0.05 mg/ inh [place]) 1 Sprays Nasal Inhalation 2 times a day each nostril Contact prescribing physician if questions or concerns Unchanged gabapentin (gabapentin 300 mg Cap) 2 Capsules By Mouth At bedtime Contact prescribing physician if questions or concerns Unchanged hydroxychloroquine (Plaquenil) 50 Milligram By Mouth Once a day (in the morning) Contact prescribing physician if questions or concerns Unchanged ibuprofen (ibuprofen 800 mg Tab) By Mouth 3 times a day Contact prescribing physician if questions or concerns Unchanged losartan (losartan 50 mg Tab) By Mouth Every day Contact prescribing physician if questions or concerns Allergies Latex (rash) lisinopril (Cough) sulfa drugs Problems Ongoing - Any problem that you are currently receiving treatment for. 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 Fibromyalgia H/O: HTN (hypertension) irregular heart beat [place] multiple cysts Patient Survey You may receive a survey via text or e-mail asking about your office visit. Please share your experience with us by completing your survey. We appreciate your feedback and thank you for choosing us for your care. Education Materials Cystoscopy Cystoscopy is a procedure that is used to help diagnose and sometimes treat conditions that affect the lower urinary tract. The lower urinary tract includes the bladder and the urethra. The urethra is the tube that drains urine from the bladder. Cystoscopy is done using a thin, tube-s (more content not included)... Normal [facility] Urine Cytology ([facility])on 0 09-08-2023 Method of Extraction Voided Normal F [facility] Comment on above: Performed By: #### 1 [id number] ####[facility] [id number] Number of Jars 1 Invalid Interpretation Code [facility] Comment on above: Performed By: #### 1 [id number] ####[address] Specimen Urine Normal [facility] Comment on above: Performed By: #### 1 [id number] ####[address] Type of Service Technical Only Normal [facility] Comment on above: Performed By: #### 1 [id number] ####[place] [address] CBC w/ Auto Diffon 4 Basophils/100 WBC (Bld) 0.6 % Normal 0.0-2.0 [facility] Comment on above: Performed By: #### 2 [id number] ####[place] [id number] Basophils/Leukocytes Auto (Bld) [Pure # fraction] 0.0 E9/L Normal 0.0-0.2 [facility] Comment on above: Performed By: #### 2 [id number], [id number], [id number] ####[id number] [address] [address] Eosinophils (Bld) [#/Vol] 0.1 E9/L Normal 0.0-0.5 [facility] Comment on above: Performed By: #### 2 233153, 3008338, 4543256, 03698552, 4475488, 6149000, 55179241 ####[facility] [address] [place] [address] Eosinophils/100 WBC (Bld) 1.3 % Normal 0.0-8.0 [facility] Comment on above: Performed By: #### 2 013963, 9889125, 8871979, 14261964, 9039916, 0084160, 41986907 ####[address] [place] [address] Erythrocyte distribution width (RBC) [Ratio] 13.7 % Normal 10.9-14.2 [facility] Comment on above: Performed By: #### 2 737325, 3944353, 1515881, 90106503, 3121862, 4706994, 41558149 ####[address] [place] [address] Hematocrit (Bld) [Volume fraction] 44.0 % Normal 34.0-46.0 [facility] Comment on above: Performed By: #### 2 217558, 9162638, 5347800, 42206072, 3760341, 9676085, 90422845 ####[address] [place] [address] Hemoglobin (Bld) [Mass/Vol] 14.9 g/dL Normal 12.0-16.0 [facility] Comment on above: Performed By: #### 2 949407, 3506380, 3255912, 72179165, 1394702, 0812057, 78187970 ####[address] [place] [address] Lymphocytes (Bld) [#/Vol] 1.4 E9/L Normal 1.0-4.0 [facility] Comment on above: Performed By: #### 2 820350, 8392782, 1885151, 83655101, 2829322, 8504434, 88797210 ####[address] [address] Lymphocytes/100 WBC (Bld) 26.1 % Normal 14.0-50.0 [facility] Comment on above: Performed By: #### 2 078704, 2624880, 7194597, 42451404, 1925295, 9420052, 80448032 ####[facility] [address] [place] [address] MCH (RBC) [Entitic mass] 31.5 pg Normal 27.0-34.0 [facility] Comment on above: Performed By: #### 2 783872, 6213857, 4611029, 16709178, 5136622, 9311684, 27789386 ####[facility] [address] [place] [address] MCHC (RBC) [Mass/Vol] 33.8 g/dL Normal 31.4-36.0 [facility] Comment on above: Performed By: #### 2 374535, 2103753, 1142168, 68554013, 7721846, 1329033, 49903580 ####[place] [address] [address] MCV (RBC) [Entitic vol] 93.0 fL Normal 80.0-100.0 [facility] Comment on above: Performed By: #### 2 093005, 9022650, 0785221, 90447851, 5456860, 4522801, 52640139 ####[address] [address] Monocytes (Bld) [#/Vol] 0.6 E9/L Normal 0.2-1.0 [facility] Comment on above: Performed By: #### 2 393786, 0538160, 0462652, 19772087, 8383841, 5557048, 00582844 ####[address] [address] Neutrophils (Bld) [#/Vol] 3.4 E9/L Normal 2.0-7.5 [facility] Comment on above: Performed By: #### 2 764332, 7040539, 3473875, 43385303, 7424122, 4816541, 06397639 ####[address] [place] [address] Neutrophils/100 WBC (Bld) 61.0 % Normal 36.0-75.0 [facility] Comment on above: Performed By: #### 2 186436, 9577850, 6163852, 86410278, 7023355, 1024621, 58586841 ####[address] [place] [address] Platelet mean volume (Bld) [Entitic vol] 7.5 fL Normal 6.4-10.8 [facility] Comment on above: Performed By: #### 2 155446, 5243766, 6413951, 95871199, 7010105, 6013360, 44898544 ####[address] [address] Platelets (Bld) [#/Vol] 252.0 E9/L Normal 150.0-500.0 [facility] Comment on above: Performed By: #### 2 598716, 1466867, 2996554, 30040688, 8604185, 5197842, 45984260 ####[address] [address] RBC (Bld) [#/Vol] 4.7 E12/L Normal 4.3-5.9 [facility] Comment on above: Performed By: #### 2 841734, 0052020, 2266437, 68308657, 0727535, 9538274, 87708982 ####[address] [address] WBC corrected for nucl RBC Auto (Bld) [#/Vol] 5.5 E9/L Normal 4.0-11.0 [facility] Comment on above: Performed By: #### 2 806260, 5599453, 5040632, 56347964, 6729718, 1352961, 84349285 ####[address] [address] CHEMISTRYOrdered By: SYSTEM SYSTEM on 08-16-2023 Albumin [Mass/Vol] 4.3 g/dL Normal 3.3 - 5.0 gm/dL [facility] Albumin/Globulin [Mass ratio] 1.5 {ratio} Normal 1.1 - 2.2 [facility] ALP [Catalytic activity/Vol] 50 [iU]/d Normal 21 - 98 Int._Unit/L [facility] ALT No additional P-5'-P [Catalytic activity/Vol] 13 [iU]/d Normal 6 - 46 Int._Unit/L [facility] Anion gap [Moles/Vol] 10 mmol/L Normal 6 - 16 mEq/L R emisol Chem AST [Catalytic activity/Vol] 19 [iU]/d Normal 5 - 43 Int._Unit/L [facility] Bilirubin [Mass/Vol] 0.6 mg/dL Normal 0.0 - 1 .1 mg/dL [facility] Calcium [Mass/Vol] 9.6 mg/dL Normal 8.9 - 11. 1 mg/dL [facility] Chloride [Moles/Vol] 110 mmol/L Normal 101 - 1 11 mmol/L [facility] Cholesterol [Mass/Vol] 191 mg/dL Normal 120 - 200 mg/dL [facility] Cholesterol in HDL [Mass/Vol] 78 mg/dL Invalid Interpretation Code [facility] Comment on above: Result Comment: '>= 60 LOW RISK' '<= 40 HIGH RISK' Cholesterol in LDL [Mass/Vol] 86 mg/dL Normal <=129mg/dL [facility] Cholesterol in VLDL [Mass/Vol] 29 mg/dL Normal 7 - 40 mg/dL [facility] CO2 [Moles/Vol] 27 mmol/L Normal 21 - 31 mmol/L [facility] Creatinine [Mass/Vol] 0.7 mg/dL Normal 0.5 - 1.3 mg/dL [facility] eGFR 94 mL/min/1.73 m2 Normal >=59mL/min /1 .73 m2 [facility] Ferritin [Mass/Vol] 47 ng/mL Normal 11 - 307 ng/mL [facility] Globulin (S) [Mass/Vol] 2.9 g/dL Normal 1.4 - 4.0 gm/dL [facility] Glucose [Mass/Vol] 90 mg/dL Normal 55 - 199 mg/dL [facility] Iron [Mass/Vol] 105 ug/dL Normal 35 - 153 mcg/dL [facility] Iron binding capacity [Mass/Vol] 319 ug/dL Normal 250 - 400 mcg/dL [facility] Potassium [Moles/Vol] 4.2 mmol/L Normal 3.5 - 5.3 mmol/L [facility] Protein [Mass/Vol] 7.2 g/dL Normal 6.0 - 7.8 gm/dL [facility] Sodium [Moles/Vol] 143 mmol/L Normal 135 - 145 mmol/L [facility] Transferrin [Mass/Vol] 228 mg/dL Normal 200 - 370 mg/dL [facility] Triglyceride [Mass/Vol] 145 mg/dL Normal <=149mg/dL R em[facility] Chem Urea nitrogen [Mass/Vol] 8 mg/dL Normal 5 - 21 mg/dL [facility] Urea nitrogen/Creatinine [Mass ratio] 11 mg/mg Normal 10 - 20 [facility] CHEMISTRYOrdered By: Rohit Sheth on 08-16-2023 Albumin DL <= 20 mg/L (U) [Mass/Vol] mg/dL Normal 0.0 - 1.9 mg/dL [facility] Albumin/Creatinine DL <= 20 mg/L (U) [Mass ratio] NOT CALCULATED Invalid Interpretation Code 0.0 - 30.0 [facility] Comment on above: Interpretive Data: 3 0-300 mg/g Cr indicates an increased risk for diabetic nephropathy. >300 mg/g Cr is consistent with clinical nephropathy. U Creatinine 87.9 mg/dL Invalid Interpretation Code [facility] CMPon 08-16-2023 Albumin [Mass/Vol] 4.3 g/dL Normal 3.3-5.0 [facility] Comment on above: Performed By: #### 2 084429, 1012265, 4170758, 05166199, 3112371, 5472693, 60340823 ####[facility] [place] [address] Albumin/Globulin (S) [Mass conc ratio] 1.5 Normal 1.1-2.2 [facility] Comment on above: Performed By: #### 2 140610, 8252784, 1712749, 01129198, 2953644, 4937475, 31078425 ####[facility] [address] [place] [address] ALP [Catalytic activity/Vol] 50 Int._Unit/L Normal 21-98 [facility] Comment on above: Performed By: #### 2 266482, 1405893, 8923166, 43672573, 7661988, 0100172, 54836382 ####[facility] [address] [place] [address] ALT No additional P-5'-P [Catalytic activity/Vol] 13 Int._Unit/L Normal 6-46 [facility] Comment on above: Performed By: #### 2 035809, 3447476, 8668764, 72715445, 7060459, 4668427, 00881758 ####[facility] [address] [place] [address] Anion gap [Moles/Vol] 10 mmol/L Normal 6-16 [facility] Comment on above: Performed By: #### 2 452510, 4400298, 7490701, 16231807, 2274057, 3242707, 89879975 ####[facility] [address] [place] [address] AST [Catalytic activity/Vol] 19 Int._Unit/L Normal 5-43 [facility] Comment on above: Performed By: #### 2 622062, 0666316, 5229415, 77029909, 5299600, 7506680, 84669533 ####[facility] [address] [place] [address] Bilirubin [Mass/Vol] 0.6 mg/dL Normal 0.0-1.1 [facility] Comment on above: Performed By: #### 2 068700, 7346237, 8439789, 18060598, 8913310, 7579732, 50613084 ####[facility] [address] [place] [address] Calcium [Mass/Vol] 9.6 mg/dL Normal 8.9-11.1 [facility] Comment on above: Performed By: #### 2 715512, 4707674, 5891309, 48386672, 4488620, 9245625, 22810608 ####[facility] [address] [place] [address] Chloride [Moles/Vol] 110 mmol/L Normal 101-111 [facility] Comment on above: Performed By: #### 2 405708, 9804951, 2622698, 34299999, 3142232, 2619592, 47462801 ####[facility] [address] [place] [address] CO2 [Moles/Vol] 27 mmol/L Normal 21-31 [facility] Comment on above: Performed By: #### 2 062195, 6482127, 7681434, 02909661, 7203377, 4813090, 49276513 ####[facility] [address] [place] [address] Creatinine [Mass/Vol] 0.7 mg/dL Normal 0.5-1.3 [facility] Comment on above: Performed By: #### 2 033140, 1304446, 1208836, 08556655, 1509329, 8578031, 19508351 ####[facility] [address] [place] [address] Globulin (S) [Mass/Vol] 2.9 g/dL Normal 1.4-4.0 [facility] Comment on above: Performed By: #### 2 331928, 0060203, 9738796, 55523653, 4148942, 7999233, 33082341 ####[facility] [address] [place] [address] Glucose [Mass/Vol] 90 mg/dL Normal 55-199 [facility] Comment on above: Performed By: #### 2 435853, 0331088, 1047651, 42365861, 4925378, 4016231, 91165523 ####[facility] [address] [place] [address] Potassium [Moles/Vol] 4.2 mmol/L Normal 3.5-5.3 [facility] Comment on above: Performed By: #### 2 351538, 6847440, 1012592, 69457128, 1238042, 2400168, 05337928 ####[facility] [address] [place] [address] Protein [Mass/Vol] 7.2 g/dL Normal 6.0-7.8 [facility] Comment on above: Performed By: #### 2 623909, 7962522, 0689480, 49317282, 8533298, 2137730, 16209029 ####[facility] [address] [place] [address] Sodium [Moles/Vol] 143 mmol/L Normal 135-145 [facility] Comment on above: Performed By: #### 2 818421, 9383518, 2723663, 23404928, 7674688, 7822838, 25193273 ####[facility] [address] [place] [address] Urea nitrogen [Mass/Vol] 8 mg/dL Normal 5-21 [facility] Comment on above: Performed By: #### 2 976874, 0302642, 1385027, 91741189, 0403047, 1432120, 07291888 ####[facility] [address] [place] [address] Urea nitrogen/Creatinine [Mass ratio] 11 No Units Normal 10-20 [facility] Comment on above: Performed By: #### 2 619321, 0394598, 2855696, 17669586, 8040528, 5234424, 63415584 ####[facility] [address] [place] [address] Consent for Treatmenton 07-31 Consent for Treatment [id number] .00TIFF Normal [facility] Ferritinon 08-16-2023 Ferritin [Mass/Vol] 47 ng/mL Normal 11-307 [facility] Comment on above: Performed By: #### 2 556314, 7816932, 9276392, 07000562, 9964579, 8466627, 09525513 ####[facility] [address] [place] [address] HEMATOLOGYOrdered By: SYSTEM SYSTEM on 08-16-2023 Basophils/100 WBC (Bld) 0.6 % Normal 0.0 - 2.0 % [facility] Basophils/Leukocytes Auto (Bld) [Pure # fraction] 0.0 E9/L Normal 0.0 - 0.2 E9/L [facility] Eosinophils (Bld) [#/Vol] 0.1 E9/L Normal 0.0 - 0.5 E9/L [facility] Eosinophils/100 WBC (Bld) 1.3 % Normal 0.0 - 8.0 % [facility] Erythrocyte distribution width (RBC) [Ratio] 13.7 % Normal 10.9 - 14.2 % [facility] Hematocrit (Bld) [Volume fraction] 44.0 % Normal 34.0 - 46.0 % [facility] Hemoglobin (Bld) [Mass/Vol] 14.9 g/dL Normal 12.0 - 16.0 gm/dL [facility] Lymphocytes (Bld) [#/Vol] 1.4 E9/L Normal 1.0 - 4.0 E9/L [facility] Lymphocytes/100 WBC (Bld) 26.1 % Normal 14.0 - 50.0 % [facility] MCH (RBC) [Entitic mass] 31.5 pg Normal 27.0 - 34.0 pg [facility] MCHC (RBC) [Mass/Vol] 33.8 g/dL Normal 31.4 - 36.0 gm/dL [facility] MCV (RBC) [Entitic vol] 93.0 fL Normal 80.0 - 100.0 fL [facility] Monocytes (Bld) [#/Vol] 0.6 E9/L Normal 0.2 - 1.0 E9/L [facility] Monocytes/100 WBC (Bld) 11.0 % Normal 4.0 - 14.0 % [facility] Neutrophils (Bld) [#/Vol] 3.4 E9/L Normal 2.0 - 7.5 E9/L [facility] Neutrophils/100 WBC (Bld) 61.0 % Normal 36.0 - 75.0 % [facility] Platelet mean volume (Bld) [Entitic vol] 7.5 fL Normal 6.4 - 10.8 fL [facility] Platelets (Bld) [#/Vol] 252.0 E9/L Normal 150. 0 - 500.0 E9/L [facility] RBC (Bld) [#/Vol] 4.7 E12/L Normal 4.3 - 5.9 E12/L [facility] WBC corrected for nucl RBC Auto (Bld) [#/Vol] 5.5 E9/L Normal 4.0 - 11.0 E9/L [facility] Ironon 08-16-2023 Iron [Mass/Vol] 105 microgram/dL Normal 35-153 [facility] Comment on above: Performed By: #### 2 801332, 6749651, 5414834, 84951414, 4629579, 3831581, 18746364 ####[facility] [address] [place] [address] Lipid Panelon 08-16-2023 Cholesterol [Mass/Vol] 191 mg/dL Normal 120-200 [facility] Comment on above: Performed By: #### 2 365201, 0064969, 9133818, 31703070, 7656795, 9901293, 84408988 ####[facility] [address] [place] [address] Cholesterol in HDL [Mass/Vol] 78 mg/dL Invalid Interpretation Code [facility] Comment on above: Result Comment: '>= 60 LOW RISK' '<= 40 HIGH RISK' Performed By: #### 2 874876, 8131389, 6522549, 43830897, 8199548, 2328990, 55234561 ####[facility] [address] [place] [address] Cholesterol in LDL [Mass/Vol] 86 mg/dL Normal <=129 [facility] Comment on above: Performed By: #### 2 296225, 3806699, 9243221, 34940183, 0324860, 9382643, 24559312 ####[facility] [address] [place] [address] Cholesterol in VLDL [Mass/Vol] 29 mg/dL Normal 7-40 [facility] Comment on above: Performed By: #### 2 176305, 8409505, 2339178, 84084857, 5532664, 8894176, 32049243 ####[facility] [address] [place] [address] Triglyceride [Mass/Vol] 145 mg/dL Normal <=149 [facility] Comment on above: Performed By: #### 2 657526, 7996774, 5699427, 74189494, 1862795, 5333152, 35071798 ####[address] [place] [address] Physician Orderon 08-16-2023 Physician Order [id number]#1 .00TIFF Normal [facility] TIBC Calculatedon 08-16-2023 Iron binding capacity [Mass/Vol] 319 microgram/dL Normal 250-400 [facility] Comment on above: Performed By: #### 2 676858, 8546080, 8429740, 98881731, 3504954, 2038752, 24860024 ####[facility] [address] [place] [address] Transferrin [Mass/Vol] 228 mg/dL Normal 200-370 [facility] Comment on above: Performed By: #### 2 445291, 7406355, 7917921, 38154058, 2966148, 3058844, 33381316 ####[facility] [address] [place] [address] U MA/Cr Ratioon 08-16-2023 Albumin DL <= 20 mg/L (U) [Mass/Vol] mg/dL Normal 0.0-1.9 [facility] Comment on above: Performed By: #### 1 862054583, 5508602061 ####[facility] [address] [place] [address] Albumin/Creatinine DL <= 20 mg/L (U) [Mass ratio] NOT CALCULATED Invalid Interpretation Code .0-30.0 [facility] Comment on above: Result Comment: 30-3 00 mg/g Cr indicates an increased risk for diabetic nephropathy. >300 mg/g Cr is consistent with clinical nephropathy. Performed By: #### 1 [id number], [id number] ####[facility] [address] [place] [address] U Creatinine 87.9 mg/dL Invalid Interpretation Code [facility] Comment on above: Performed By: #### 1 [id number], [id number] ####[facility] [address] [place] [address] URINALYSISOrdered By: SYSTEM SYSTEM on 08-16-2023 Bacteria Auto Ql (U) Trace graded/HPF Normal Tra cegraded/ HPF [facility] UA Auto SS Bilirubin Ql (U) Negative Normal Negativemg/ d L [facility] UA Auto SS Clarity (U) Turbid *ABN* (08/16/23 6:51 AM) Invalid Interpretation Code Clear [facility] UA Auto SS Color (U) Light-Yellow 1 (08/16/23 6:51 AM) Normal Yellow [facility] UA Auto SS Comment on above: Interpretive Data: M icroscopic readings are only performed on those samples that meet specific criteria set forth by [facility]. Epithelial cells.squamous Auto (Urine sed) [#/Area] >10 graded/HPF Invalid Interpretation Code 0-2graded/HP F [facility] UA Auto SS Glucose Ql (U) Negative Normal Negativemg/d L [facility] UA Auto SS Hemoglobin Auto test strip (U) [Mass/Vol] 1+ mg/dL Invalid Interpretation Code Negativemg/d L [facility] UA Auto SS Ketones Auto test strip Ql (U) Negative Normal Negativemg/d L [facility] UA Auto SS Leukocyte esterase Auto test strip Ql (U) 75 Jadyn/uL Jadyn/uL Invalid Interpretation Code NegativeLeu/ uL [facility] UA Auto SS Mucus Auto Ql (U) Trace graded/LPF Normal Negati vegrad ed/LPF [facility] UA Auto SS Nitrite Auto test strip Ql (U) Negative Normal Negativemg/d L [facility] UA Auto SS pH (U) 6.0 *NA* (08/16/23 6:51 AM) Invalid Interpretation Code 5.0 - 9.0 [facility] UA Auto SS Protein Ql (U) Trace mg/dL Invalid Interpretation Code Negativemg/d L [facility] UA Auto SS RBC Ql (U) 4-20 graded/HPF Invalid Interpretation Code 0-3graded/HP F [facility] UA Auto SS Specific gravity (U) [Rel density] 1.015 *NA* (08/16/23 6:51 AM) Invalid Interpretation Code 1.005 - 1.030 [facility] UA Auto SS Urobilinogen (U) [Mass/Vol] Negative Normal Negativemg/d L [facility] UA Auto SS WBC Auto (Urine sed) [#/Area] 0-5 graded/HPF Normal 0-5graded/HP F [facility] UA Auto SS URINALYSISOrdered By: Wanda Breaux on 08-16-2023 UA Spec Desc Clean Catch (08/16/23 6:51 AM) Normal [facility] UA Auto SS Urinalysis with Microon 07-31 Bacteria Auto Ql (U) Trace Normal Trace Fish [facility] Comment on above: Performed By: #### 1 [id number], [id number] ####[address] [place] [address]57 Bilirubin Ql (U) Negative Normal Negative [facility] Comment on above: Performed By: #### 1 [id number], [id number] ####[address] [place] [address] Clarity (U) Turbid Abnormal Clear [facility] Comment on above: Performed By: #### 1 [id number], [id number] ####[address] [place] [address] Color (U) Light-Yellow Normal Yellow [facility] Comment on above: Result Comment: Micr oscopic readings are only performed on those samples that meet specific criteria set forth by [facility]. Performed By: #### 1 [id number], [id number] ####[facility] [address] [place] [address] Epithelial cells.squamous Auto (Urine sed) [#/Area] >10 Abnormal 0-2 [facility] Comment on above: Performed By: #### 1 [id number], [id number] ####[facility] [address] [place] [address] Glucose Ql (U) Negative Normal Negative [facility] Comment on above: Performed By: #### 1 870197096, [id number] ####[facility] [address] [place] [address] Hemoglobin Auto test strip (U) [Mass/Vol] 1+ mg/dL Abnormal Negative [facility] Comment on above: Performed By: #### 1 781926788, 4941005015 ####[facility] [address] [place] [address] Ketones Auto test strip Ql (U) Negative Normal Negative [facility] Comment on above: Performed By: #### 1 991067678, 5003244726 ####[facility] [address] [place] [address] Leukocyte esterase Auto test strip Ql (U) 75 Jadyn/uL Abnormal Negative [facility] Comment on above: Performed By: #### 1 565341497, 5770733035 ####[facility] [address] [place] [address] Mucus Auto Ql (U) Trace Normal Negative [facility] Comment on above: Performed By: #### 1 760099349, [id number] ####[facility] [address] [place] [address] Nitrite Auto test strip Ql (U) Negative Normal Negative [facility] Comment on above: Performed By: #### 1 809738215, [id number] ####[facility] [address] [place] [address] pH (U) 6.0 [pH] Invalid Interpretation Code 5.0-9.0 [facility] Comment on above: Performed By: #### 1 501677696, [id number] ####[facility] [address] [place] [address] Protein Ql (U) Trace Abnormal Negative [facility] Comment on above: Performed By: #### 1 [id number], [id number] ####[address] [place] [address] RBC Ql (U) 4-20 Abnormal 0-3 [facility] Comment on above: Performed By: #### 1 [id number], [id number] ####[address] [place] [address] Specific gravity (U) [Rel density] 1.015 Invalid Interpretation Code 1.005-1.030 [facility] Comment on above: Performed By: #### 1 [id number], [id number] ####[place] [address] Urobilinogen (U) [Mass/Vol] Negative Normal Negative [facility] Comment on above: Performed By: #### 1 083548459, [id number] ####[place] [address] WBC Auto (Urine sed) [#/Area] 0-5 Normal 0-5 [facility] Comment on above: Performed By: #### 1 [id number], [id number] ####[address] [address] Type of Urine collection method Clean Catch Normal [facility] Comment on above: Performed By: #### 1 [id number], [id number] ####[address] [place] [address] eGFRon 08-16-2023 eGFR 94 mL/min/1.73 m2 Normal >=59 [facility] Comment on above: Order Comment: Order added by Discern Expert. Performed By: #### 2 476678, 5214606, 3066060, 05094357, 0592491, 4072467, 47016956 ####[facility] [address] [place] [address] Automated basophil %Ordered By: Valerie Piña on 06-15-2023 Basophils/100 WBC (Bld) 0.9 % Normal . [facility] Comment on above: Performed By: #### C REAT, CRP, CBC, ESR, CK, ADDONUAPLUS #### [place] [address] [place] #### C3, C4 #### [facility] , Automated basophil countOrde red By: Valerie Piña on 06-15-2023 Basophils (Bld) [#/Vol] 0.1 10*3/uL Normal 0.0-0.2 [facility] Comment on above: Performed By: #### C REAT, CRP, CBC, ESR, CK, ADDONUAPLUS #### [place] [address] [place] #### C3, C4 #### [facility] , Automated blood monocyte cou ntOrdered By: Valerie Piña on 06-15-2023 Monocytes (Bld) [#/Vol] 0.6 10*3/uL Normal 0.0-0.8 [facility] Comment on above: Performed By: #### C REAT, CRP, CBC, ESR, CK, ADDONUAPLUS #### [place] [address] [place] #### C3, C4 #### [facility] , Automated eosinophil %Ordere d By: Valerie Piña on 06-15-2023 Eosinophils/100 WBC (Bld) 0.3 % Normal . [facility] Comment on above: Performed By: #### C REAT, CRP, CBC, ESR, CK, ADDONUAPLUS #### [facility] [address] [place] [address] [place] #### C3, C4 #### [facility] , Automated eosinophil countOr dered By: Valerie Piña on 06-15-2023 Eosinophils (Bld) [#/Vol] 0.0 10*3/uL Normal 0.0-0.45 [facility] Comment on above: Performed By: #### C REAT, CRP, CBC, ESR, CK, ADDONUAPLUS #### [address] #### C3, C4 #### [facility] , Automated erythrocytes count in urine sediment (number/area)Ordered By: Valerie Piña on 06-15-2023 RBC Auto (Urine sed) [#/Area] 3-4 [HPF] 0-4 [facility] Automated leukocytes count i n urine sediment (number/area)Ordered By: Valerie Piña on 06-15-2023 WBC Auto (Urine sed) [#/Area] 0-1 [HPF] 0-4 [facility] Automated monocyte %Ordered By: Valerie Piña on 06-15-2023 Monocytes/100 WBC (Bld) 9.6 % Normal . [facility] Comment on above: Performed By: #### C REAT, CRP, CBC, ESR, CK, ADDONUAPLUS #### [address] #### C3, C4 #### [facility] , Automated neutrophil %Ordere d By: Valerie Piña on 06-15-2023 Neutrophils/100 WBC (Bld) 68.8 % Normal . [facility] Comment on above: Performed By: #### C REAT, CRP, CBC, ESR, CK, ADDONUAPLUS #### [address] #### C3, C4 #### [facility] , Automated urine color determ inationOrdered By: Valerie Piña on 06-15-2023 Color (U) Yellow Normal Yellow [facility] Comment on above: Order Comment: Name Collection Type:: Clean-Voided Midstream Performed By: #### C REAT, CRP, CBC, ESR, CK, ADDONUAPLUS #### [place] [address] [place] #### C3, C4 #### [facility] , Bilirubin Test strip Ql (U)O rdered By: Valerie Piña on 06-15-2023 Bilirubin Ql (U) Negative Negative [facility] C reactive protein [Mass/vol ume] in Serum or PlasmaOrdered By: Valerie Piña on 06-15-2023 CRP [Mass/Vol] < 0.5 mg/dL 0.0-0.5 [facility] C-Reactive Proteinon 024 CRP [Mass/Vol] mg/L Normal 0.0-0.5 [facility] Comment on above: Result Comment: PERF ORMED BY: [place] [address] PATHOLOGIST INSTRUCTIONAL FACILITATOR VENKATA SANCHEZ M.D. Performed By: #### C REAT, CRP, CBC, ESR, CK, ADDONUAPLUS #### [address] #### C3, C4 #### [facility] , Complement C3on 06-15-2023 Complement C3 135 mg/dL Normal 82-167 [facility] Comment on above: Result Comment: Perf ormed at: - [facility] [address] [id number] Chisel Worker: Gilberto Ward PhD, Phone: [phone] Performed By: #### C REAT, CRP, CBC, ESR, CK, ADDONUAPLUS #### [address] #### C3, C4 #### [facility] , Complement C4on 06-15-2023 Complement C4 29 mg/dL Normal 12-38 [facility] Comment on above: Result Comment: PERF ORMED BY: [place] [address] PATHOLOGIST INSTRUCTIONAL FACILITATOR VENKATA SANCHEZ M.D. Performed By: #### C REAT, CRP, CBC, ESR, CK, ADDONUAPLUS #### [address] #### C3, C4 #### [facility] , Complete Blood Count Auto Di ffon 06-15-2023 Mean Corpuscular HGB Conc 34.3 g/dL Normal 32.0-35.0 [facility] Comment on above: Performed By: #### C REAT, CRP, CBC, ESR, CK, ADDONUAPLUS #### [address] #### C3, C4 #### [facility] , NRBC% 0.1 /100{WBC} Normal 0-0.5 [facility] Comment on above: Performed By: #### C REAT, CRP, CBC, ESR, CK, ADDONUAPLUS #### [address] #### C3, C4 #### [facility] , Creatine kinase [Enzymatic a ctivity/volume] in Serum or PlasmaOrdered By: Valerie Piña on 06-15-2023 CK [Catalytic activity/Vol] 80 U/L Normal 30-223 [facility] Comment on above: Result Comment: PERF ORMED BY: [place] [address] PATHOLOGIST INSTRUCTIONAL FACILITATOR VENKATA SANCHEZ M.D. Performed By: #### C REAT, CRP, CBC, ESR, CK, ADDONUAPLUS #### [address] #### C3, C4 #### [facility] , Creatinineon 06-15-2023 GFR/1.73 sq M.predicted MDRD (S/P/Bld) [Vol rate/Area] mL/min/{1.73_m2} Normal [facility] Comment on above: Performed By: #### C REAT, CRP, CBC, ESR, CK, ADDONUAPLUS #### [place] [address] [place] #### C3, C4 #### [facility] , Creatinine [Mass/volume] in Serum or PlasmaOrdered By: Valerie Piña on 06-15-2023 Creatinine [Mass/Vol] 0.63 mg/dL Normal 0.60-1.20 [facility] Comment on above: Performed By: #### C REAT, CRP, CBC, ESR, CK, ADDONUAPLUS #### [facility] [address] [place] [address] #### C3, C4 #### [facility] , Dipstick and Microscopicon 0 06-15-2023 Appearance (U) Clear Normal Clear [facility] Comment on above: Order Comment: Name Collection Type:: Clean-Voided Midstream Performed By: #### C REAT, CRP, CBC, ESR, CK, ADDONUAPLUS #### [address] #### C3, C4 #### [facility] , Bacteria,Urine None Seen Normal None Seen [facility] Comment on above: Order Comment: Name Collection Type:: Clean-Voided Midstream Performed By: #### C REAT, CRP, CBC, ESR, CK, ADDONUAPLUS #### [address] #### C3, C4 #### [facility] , Bilirubin,Urine Negative Normal Negative [facility] Comment on above: Order Comment: Name Collection Type:: Clean-Voided Midstream Performed By: #### C REAT, CRP, CBC, ESR, CK, ADDONUAPLUS #### [address] #### C3, C4 #### [facility] , Glucose Ql (U) Normal Normal Normal [facility] Comment on above: Order Comment: Name Collection Type:: Clean-Voided Midstream Performed By: #### C REAT, CRP, CBC, ESR, CK, ADDONUAPLUS #### [address] #### C3, C4 #### [facility] , Hyaline Casts,Urine 0-8 Normal 0-8 [facility] Comment on above: Order Comment: Name Collection Type:: Clean-Voided Midstream Result Comment: PERF ORMED BY: [place] [address] PATHOLOGIST INSTRUCTIONAL FACILITATOR VENKATA SANCHEZ M.D. Performed By: #### C REAT, CRP, CBC, ESR, CK, ADDONUAPLUS #### [address] #### C3, C4 #### [facility] , Ketones Ql (U) Negative Normal Negative [facility] Comment on above: Order Comment: Name Collection Type:: Clean-Voided Midstream Performed By: #### C REAT, CRP, CBC, ESR, CK, ADDONUAPLUS #### [address] #### C3, C4 #### [facility] , Leukocyte esterase Test strip Ql (U) 1+ High Negative [facility] Comment on above: Order Comment: Name Collection Type:: Clean-Voided Midstream Performed By: #### C REAT, CRP, CBC, ESR, CK, ADDONUAPLUS #### [address] #### C3, C4 #### [facility] , Nitrite,Urine Negative Normal Negative [facility] Comment on above: Order Comment: Name Collection Type:: Clean-Voided Midstream Performed By: #### C REAT, CRP, CBC, ESR, CK, ADDONUAPLUS #### [address] #### C3, C4 #### [facility] , Occult Blood,Urine Trace High Negative [facility] Comment on above: Order Comment: Name Collection Type:: Clean-Voided Midstream Performed By: #### C REAT, CRP, CBC, ESR, CK, ADDONUAPLUS #### [address] #### C3, C4 #### [facility] , Protein,Urine Negative Normal Negative [facility] Comment on above: Order Comment: Name Collection Type:: Clean-Voided Midstream Performed By: #### C REAT, CRP, CBC, ESR, CK, ADDONUAPLUS #### [address] #### C3, C4 #### [facility] , RBC,Urine 3-4 Normal 0-4 [facility] Comment on above: Order Comment: Name Collection Type:: Clean-Voided Midstream Performed By: #### C REAT, CRP, CBC, ESR, CK, ADDONUAPLUS #### [address] #### C3, C4 #### [facility] , Specificy [place],Urine 1.016 Normal 1.001-1.030 [facility] Comment on above: Order Comment: Name Collection Type:: Clean-Voided Midstream Performed By: #### C REAT, CRP, CBC, ESR, CK, ADDONUAPLUS #### [address] #### C3, C4 #### [facility] , Squamous Epithelial Cell,Urine None Seen Normal 0-2 [facility] Comment on above: Order Comment: Name Collection Type:: Clean-Voided Midstream Performed By: #### C REAT, CRP, CBC, ESR, CK, ADDONUAPLUS #### [address] #### C3, C4 #### [facility] , Urobilinogen,Urine Normal Normal Normal [facility] Comment on above: Order Comment: Name Collection Type:: Clean-Voided Midstream Performed By: #### C REAT, CRP, CBC, ESR, CK, ADDONUAPLUS #### [address] #### C3, C4 #### [facility] , WBC LM.HPF (Urine sed) [#/Area] 0 /[HPF] Normal 0-4 [facility] Comment on above: Order Comment: Name Collection Type:: Clean-Voided Midstream Performed By: #### C REAT, CRP, CBC, ESR, CK, ADDONUAPLUS #### [address] #### C3, C4 #### [facility] , Erythrocyte Sedimentation Ra bettie 06-15-2023 ESR (Bld) [Velocity] 16 mm/h Normal 0-29 [facility] Comment on above: Result Comment: PERF ORMED BY: [place] [address] PATHOLOGIST INSTRUCTIONAL FACILITATOR VENKATA SANCHEZ M.D. Performed By: #### C REAT, CRP, CBC, ESR, CK, ADDONUAPLUS #### [address] #### C3, C4 #### [facility] , Erythrocyte distribution wid th [Ratio] by Automated countOrdered By: Valerie Piña on 06-15-2023 Erythrocyte distribution width (RBC) [Ratio] 13.6 % Normal 11.9-15.3 [facility] Comment on above: Performed By: #### C REAT, CRP, CBC, ESR, CK, ADDONUAPLUS #### [address] #### C3, C4 #### [facility] , Erythrocyte sedimentation ra te by Photometric methodOrdered By: Valerie Piña on 06-15-2023 ESR Photometric method (Bld) [Velocity] 16 mm/hr 0-29 [facility] Erythrocytes [#/volume] in B lood by Automated countOrdered By: Valerie Piña on 06-15-2023 RBC (Bld) [#/Vol] 4.68 10*6/uL Normal 3.60-5.00 [facility] Comment on above: Performed By: #### C REAT, CRP, CBC, ESR, CK, ADDONUAPLUS #### [facility] [address] [place] [address] [place] #### C3, C4 #### [facility] , Hematocrit [Volume Fraction] of Blood by Automated countOrdered By: Valerie Piña on 06-15-2023 Hematocrit (Bld) [Volume fraction] 43.5 % Normal 34.0-46.4 [facility] Comment on above: Performed By: #### C REAT, CRP, CBC, ESR, CK, ADDONUAPLUS #### [address] #### C3, C4 #### [facility] , Hemoglobin [Mass/volume] in BloodOrdered By: Valerie Piña on 06-15-2023 Hemoglobin (Bld) [Mass/Vol] 14.9 g/dL Normal 11.8-15.4 [facility] Comment on above: Performed By: #### C REAT, CRP, CBC, ESR, CK, ADDONUAPLUS #### [place] [address] [place] #### C3, C4 #### [facility] , Ketones Auto test strip (U) [Mass/Vol]Ordered By: Valerie Piña on 06-15-2023 Ketones (U) [Mass/Vol] Negative Negative [facility] - UrinalysisOrder ed By: Valerie Piña on 06-15-2023 Hyaline casts LM Ql (Urine sed) 0-8 [LPF] 0-8 [facility] Leukocytes [#/volume] correc serafin for nucleated erythrocytes in Blood by Automated counOrdered By: Valerie Piña on 06-15-2023 WBC corrected for nucl RBC Auto (Bld) [#/Vol] 6.3 10*3/uL 3.8-11.6 [facility] Leukocytes [#/volume] in Blo od by Automated countOrdered By: Valerie Piña on 06-15-2023 WBC (Bld) [#/Vol] 6.3 10*3/uL Normal 3.8-11.6 [facility] Comment on above: Performed By: #### C REAT, CRP, CBC, ESR, CK, ADDONUAPLUS #### [place] [address] [place] #### C3, C4 #### [facility] , Lymphocytes [#/volume] in Bl ood by Automated countOrdered By: Valerie Piña on 06-15-2023 Lymphocytes (Bld) [#/Vol] 1.3 10*3/uL Normal 1.00-4.8 [facility] Comment on above: Performed By: #### C REAT, CRP, CBC, ESR, CK, ADDONUAPLUS #### [place] [address] [place] #### C3, C4 #### [facility] , Lymphocytes/100 leukocytes i n Blood by Automated countOrdered By: Valerie Piña on 06-15-2023 Lymphocytes/100 WBC (Bld) 20.4 % Normal . [facility] Comment on above: Performed By: #### C REAT, CRP, CBC, ESR, CK, ADDONUAPLUS #### [place] [address] [place] #### C3, C4 #### [facility] , MCH [Entitic mass] by Automa serafin countOrdered By: Valerie Piña on 06-15-2023 MCH (RBC) [Entitic mass] 31.8 pg Normal 24.7-34.3 [facility] Comment on above: Performed By: #### C REAT, CRP, CBC, ESR, CK, ADDONUAPLUS #### [place] [address] [place] #### C3, C4 #### [facility] , MCHC Auto (RBC) [Mass/Vol]Or dered By: Valerie Piña on 06-15-2023 MCHC (RBC) [Mass/Vol] 34.3 g/dL 32.0-35.0 [facility] MCV [Entitic volume] by Auto mated countOrdered By: Valerie Piña on 06-15-2023 MCV (RBC) [Entitic vol] 92.9 fL Normal 80-100 [facility] Comment on above: Performed By: #### C REAT, CRP, CBC, ESR, CK, ADDONUAPLUS #### [address] #### C3, C4 #### [facility] , Neutrophils [#/volume] in Bl ood by Automated countOrdered By: Valerie Piña on 06-15-2023 Neutrophils (Bld) [#/Vol] 4.3 10*3/uL Normal 1.8-7.7 [facility] Comment on above: Performed By: #### C REAT, CRP, CBC, ESR, CK, ADDONUAPLUS #### [facility] [address] [place] [address] [place] #### C3, C4 #### [facility] , Nitrite Test strip Ql (U)Ord ered By: Valerie Piña on 06-15-2023 Nitrite Ql (U) Negative Negative [facility] No Panel InformationOrdered By: Valerie Piña on 06-15-2023 Estimated GFR (CKD-EPI) > 60.0 mL/Min [facility] Creatinine Clearance (Chem N/A [facility] Nucleated erythrocytes [Pres ence] in Blood by Automated countOrdered By: Valerie Piña on 06-15-2023 Nucleated RBC Auto Ql (Bld) 0.1 /100{WBC} 0-0.5 [facility] Platelet mean volume [Entiti c volume] in Blood by Automated countOrdered By: Valerie Piña on 06-15-2023 Platelet mean volume (Bld) [Entitic vol] 7.4 fL Normal 6.3-10.7 [facility] Comment on above: Performed By: #### C REAT, CRP, CBC, ESR, CK, ADDONUAPLUS #### [facility] [address] [place] [address] [place] #### C3, C4 #### [facility] , Platelets [#/volume] in Bloo d by Automated countOrdered By: Valerie Piña on 06-15-2023 Platelets (Bld) [#/Vol] 264 10*3/uL Normal 150-450 [facility] Comment on above: Performed By: #### C REAT, CRP, CBC, ESR, CK, ADDONUAPLUS #### [facility] [address] [place] [address] [place] #### C3, C4 #### [facility] , Protein Auto test strip (U) [Mass/Vol]Ordered By: Valerie Piña on 06-15-2023 Protein (U) [Mass/Vol] Negative Negative [facility] Specific gravity Auto test s trip (U) [Rel density]Ordered By: Valerie Piña on 06-15-2023 Specific gravity (U) [Rel density] 1.016 1.001-1.030 [facility] Squamous epithelial cells de tection in urine sediment by light microscopyOrdered By: Valerie Piña on 06-15-2023 Epithelial cells.squamous LM Ql (Urine sed) None seen [HPF] 0-2 [facility] Urine bacteria detection by automated methodOrdered By: Valerie Piña on 06-15-2023 Bacteria Auto Ql (U) None seen None Seen [facility] Urine clarity by refractomet ry automatedOrdered By: Valerie Piña on 06-15-2023 Clarity Refractometry automated (U) Clear Clear [facility] Urine glucose measurement by automated test strip (mass/volume)Ordered By: Valerie Piña on 06-15-2023 Glucose Auto test strip (U) [Mass/Vol] Normal mg/dL Normal [facility] Urine hemoglobin detection b y automated test stripOrdered By: Valerie Piña on 06-15-2023 Hemoglobin Auto test strip Ql (U) Trace Negative [facility] Urine leukocyte esterase det ection by automated test stripOrdered By: Valerie Piña on 06-15-2023 Leukocyte esterase Auto test strip Ql (U) 1+ Negative [facility] Urine pH measurement by auto mated test stripOrdered By: Valerie Piña on 06-15-2023 pH (U) 5.5 [pH] Normal 5.0-9.0 [facility] Comment on above: Order Comment: Name Collection Type:: Clean-Voided Midstream Performed By: #### C REAT, CRP, CBC, ESR, CK, ADDONUAPLUS #### [facility] [address] #### C3, C4 #### [facility] , Urobilinogen Auto test strip (U) [Mass/Vol]Ordered By: Valerie Piña on 06-15-2023 Urobilinogen (U) [Mass/Vol] Normal mg/dL Normal [facility] PT - Home Exercise Programon 05-16-2023 PT - Home Exercise Program [id number]# 1.00TIFF Normal [facility] PT - Assessmentson PT - Assessments [id number]# 1.00TIFF Normal [facility] BMPon 05-09-2023 Anion gap [Moles/Vol] 9 mmol/L Normal 6-16 [facility] Comment on above: Performed By: #### 2 [id number], [id number] ####[facility] [address] [place] [address] BUN/Creat Ratio 20 No Units Normal 10-20 [facility] Comment on above: Performed By: #### 2 [id number], [id number] ####[facility] [address] [place] [address] Calcium [Mass/Vol] 9.4 mg/dL Normal 8.9-11.1 [facility] Comment on above: Performed By: #### 2 [id number], [id number] ####[facility] [address] [place] [address] Chloride [Moles/Vol] 108 mmol/L Normal 101-111 [facility] Comment on above: Performed By: #### 2 887898, [id number] ####[facility] [address] [place] [address] CO2 [Moles/Vol] 28 mmol/L Normal 21-31 [facility] Comment on above: Performed By: #### 2 114342, [id number] ####[facility] [address] [facility] [place] [address] Creatinine [Mass/Vol] 0.7 mg/dL Normal 0.5-1.3 [facility] Comment on above: Performed By: #### 2 [id number], [id number] ####[facility] [address] [facility] [place] [address] Glucose [Mass/Vol] 90 mg/dL Normal 55-199 [facility] Comment on above: Performed By: #### 2 [id number], [id number] ####[facility] [address] [facility] [place] [address] Potassium [Moles/Vol] 4.3 mmol/L Normal 3.5-5.3 [facility] Comment on above: Performed By: #### 2 876082, [id number] ####[facility] [address] [facility] [address] Sodium [Moles/Vol] 141 mmol/L Normal 135-145 [facility] Comment on above: Performed By: #### 2 557946, [id number] ####[facility] [address] [facility] [place] [address] Urea nitrogen [Mass/Vol] 14 mg/dL Normal 5-21 [facility] Comment on above: Performed By: #### 2 648242, [id number] ####[facility] [address] [place] [address] CHEMISTRYOrdered By: SYSTEM SYSTEM on 05-09-2023 Anion gap [Moles/Vol] 9 mmol/L Normal 6 - 16 mEq/L R emisol Chem Calcium [Mass/Vol] 9.4 mg/dL Normal 8.9 - 11. 1 mg/dL [facility] Chloride [Moles/Vol] 108 mmol/L Normal 101 - 1 11 mmol/L [facility] CO2 [Moles/Vol] 28 mmol/L Normal 21 - 31 mmol/L [facility] Creatinine [Mass/Vol] 0.7 mg/dL Normal 0.5 - 1.3 mg/dL [facility] eGFR mL/min/1.73 m2 Normal >=59mL/min/1 .73 m2 [facility] Glucose [Mass/Vol] 90 mg/dL Normal 55 - 199 mg/dL [facility] Potassium [Moles/Vol] 4.3 mmol/L Normal 3.5 - 5.3 mmol/L [facility] Sodium [Moles/Vol] 141 mmol/L Normal 135 - 145 mmol/L [facility] Urea nitrogen [Mass/Vol] 14 mg/dL Normal 5 - 21 mg/dL [facility] Urea nitrogen/Creatinine [Mass ratio] 20 mg/mg Normal 10 - 20 [facility] Consent for Treatmenton Consent for Treatment [id number]#1 .00TIFF Normal [facility] Physician Orderon 05-09-2023 Physician Order [id number]# 1.00TIFF Normal [facility] eGFRon 05-09-2023 GFR/1.73 sq M.predicted among non-blacks MDRD (S/P/Bld) [Vol rate/Area] mL/min/{1.73_m2} Normal >=59 [facility] Comment on above: Order Comment: Order added by Discern Expert. Performed By: #### 2 [id number], [id number] ####[facility] [address] [place] [address] PT - Home Exercise Programon 04-20-2023 PT - Home Exercise Program [id number]#1 .00TIFF Normal [facility] BI MAMMOGRAM SCREENING TOMOS YNTHESIS BILATERALon 04-14-2023 BI MAMMOGRAM SCREENING TOMOSYNTHESIS BILATERAL This is a summary report. The complete report is available in the patient's medical record. If you cannot access the medical record, please contact the sending organization for a detailed fax or copy. DEXA BONE DENSITY, : 04/14/2023 9:00 AM CLINICAL HISTORY: screening COMPARISON: December 25, 2020. TECHNIQUE: The lumbar spine and both hips were scanned. FINDINGS: The mean bone mineral density from L1 through L4 is 0.768, and the T-score is -2.5, which is the standard deviation below the standard reference value for young adult. Densitometry trend: L1-L4: Significant -4.3% change versus previous Bone mineral density of the left femoral neck is 0.636, and the T-score is -1.9, which is the standard deviation below the standard reference value for young adult. Bone mineral density of the right femoral neck is 0.653 , and the T-score is -1.8, which is the standard deviation below the standard reference value for young adult. Densitometry trend: Total mean: -1.9% change versus previous. These values meet WHO criteria for osteoporosis. The NOF/ISD guideline recommended FRAX for patients if the lowest T score for Spine(L1-L4), Femur Neck or Femur Total indicates low bone density (T score -1 to -2.5, osteopenia). IMPRESSION: OSTEOPOROSIS. BI MAMMOGRAM SCREENING TOMOSYNTHESIS BILATERAL BI MAMMOGRAM SCREENING TOMOSYNTHESIS BILATERAL:04/14/2023 9:00 AM CLINICAL HISTORY:screening. COMPARISONS: March 12, 2021 March 31, 2022. TECHNIQUE: Routine full field 3D breast tomosynthesis was performed bilaterally. CAD analysis was performed and used in the interpretation. FINDINGS: Scattered fibroglandular densities are noted with stable asymmetry. There are no developing masses, suspicious microcalcifications, or areas of architectural distortion identified on today's examination. There is no significant change when compared to the prior examinations identified, given differences in technique and positioning. IMPRESSION: BI-RADS 1- NEGATIVE. ROUTINE FOLLOW-UP MAMMOGRAPHY IS SUGGESTED IN ONE YEAR. DENSITY: Scattered fibroglandular densities. Board Certified Radiologists. Accredited by the ACR and FDA. MAMMOGRAPHY IS VERY IMPORTANT TO YOUR HEALTH. THE [employer] GUIDELINES RECOMMEND THAT WOMEN 40 YEARS OF AGE AND OLDER SHOULD HAVE A MAMMOGRAM EVERY YEAR. A REMINDER LETTER WILL BE SENT AT THE APPROPRIATE TIME. ELECTRONICALLY SIGNED BY: Charley Hilton, DO Normal Not Available DEXA BONE DENSITYon 04-14-20 23 DEXA BONE DENSITY This is a summary report. The complete report is available in the patient's medical record. If you cannot access the medical record, please contact the sending organization for a detailed fax or copy. DEXA BONE DENSITY, : 04/14/2023 9:00 AM CLINICAL HISTORY: screening COMPARISON: December 25, 2020. TECHNIQUE: The lumbar spine and both hips were scanned. FINDINGS: The mean bone mineral density from L1 through L4 is 0.768, and the T-score is -2.5, which is the standard deviation below the standard reference value for young adult. Densitometry trend: L1-L4: Significant -4.3% change versus previous Bone mineral density of the left femoral neck is 0.636, and the T-score is -1.9, which is the standard deviation below the standard reference value for young adult. Bone mineral density of the right femoral neck is 0.653 , and the T-score is -1.8, which is the standard deviation below the standard reference value for young adult. Densitometry trend: Total mean: -1.9% change versus previous. These values meet WHO criteria for osteoporosis. The NOF/ISD guideline recommended FRAX for patients if the lowest T score for Spine(L1-L4), Femur Neck or Femur Total indicates low bone density (T score -1 to -2.5, osteopenia). IMPRESSION: OSTEOPOROSIS. BI MAMMOGRAM SCREENING TOMOSYNTHESIS BILATERAL BI MAMMOGRAM SCREENING TOMOSYNTHESIS BILATERAL:04/14/2023 9:00 AM CLINICAL HISTORY:screening. COMPARISONS: March 12, 2021 March 31, 2022. TECHNIQUE: Routine full field 3D breast tomosynthesis was performed bilaterally. CAD analysis was performed and used in the interpretation. FINDINGS: Scattered fibroglandular densities are noted with stable asymmetry. There are no developing masses, suspicious microcalcifications, or areas of architectural distortion identified on today's examination. There is no significant change when compared to the prior examinations identified, given differences in technique and positioning. IMPRESSION: BI-RADS 1- NEGATIVE. ROUTINE FOLLOW-UP MAMMOGRAPHY IS SUGGESTED IN ONE YEAR. DENSITY: Scattered fibroglandular densities. Board Certified Radiologists. Accredited by the ACR and FDA. MAMMOGRAPHY IS VERY IMPORTANT TO YOUR HEALTH. THE [place] [employer] GUIDELINES RECOMMEND THAT WOMEN 40 YEARS OF AGE AND OLDER SHOULD HAVE A MAMMOGRAM EVERY YEAR. A REMINDER LETTER WILL BE SENT AT THE APPROPRIATE TIME. ELECTRONICALLY SIGNED BY: Charley Hilton DO Normal Not Available PT - Assessmentson PT - Assessments [id number]#1 .00TIFF Normal [facility] PT - Consentson 04-12-2023 PT - Consents [id number]#1 .00TIFF Normal [facility] PT - Home Exercise Programon 04-12-2023 PT - Home Exercise Program [id number]#1 .00TIFF Normal [facility] PT - Orderson 04-12-2023 PT - Orders [id number]# 1.00TIFF Normal [facility] XR Sternum Minimum 2 Viewson 01-31-2023 XR Sternum Minimum 2 Views Exam Date/Time: 01/27/2023 09:50 EDT Reason for Exam: pain Report IMPRESSION: NO ACUTE OSSEOUS ABNORMALITY. EXAMINATION: XR Sternum Minimum 2 Views HISTORY: Right clavicle lesion. COMPARISON: None available TECHNIQUE: Bilateral oblique and lateral views of the sternum FINDINGS: No acute or aggressive abnormality of the sternum or visualized portion of either clavicle. Visualized lungs appear clear. Atherosclerotic calcification of the thoracic aorta. Soft tissues appear within normal limits. Ordering Provider: VALERIE MORSE FINAL REPORT Dictated: 01/31/2023 4:52 pm Valerie Sexton DO Signed (Electronic Signature): 01/31/2023 4:52 pm Signed by: Valerie Sexton DO Transcribed by: MADALYN Technologist: MAURILIO Technical Comments Radiation Dose: ashley Poole in mGy = . DAP = . Normal [facility] XR Clavicle Righton 01-31-20 XR Clavicle Right Exam Date/Time: 01/27/2023 09:50 EDT Reason for Exam: D49.2 abnoraml growth of clavical Report IMPRESSION: NEGATIVE RIGHT CLAVICLE. CLINICAL HISTORY: D49.2 abnormal growth of clavicle. COMPARISON: None available. FINDINGS: AP and upshot views of the right clavicle demonstrate no evidence of a fracture or other bone abnormality. Ordering Provider: VALERIE MORSE FINAL REPORT Dictated: 01/30/2023 5:19 pm Blair Michel MD Signed (Electronic Signature): 01/30/2023 5:19 pm Signed by: Blair Michel MD Transcribed by: MADALYN Technologist: MAURILIO Technical Comments Radiation Dose: Ka,r in mGy = . DAP = . Normal [facility] Consent for Treatmenton 01-01 Consent for Treatment [id number]#1 .00CD:127 Normal [facility] Physician Orderon 01-27-2023 Physician Order [id number]# 1.00CD:127 Normal [facility] BMPon 01-19-2023 Anion gap [Moles/Vol] 9 mmol/L Normal 6-16 [facility] Comment on above: Performed By: #### 2 [id number], [id number], [id number] ####[facility] [address] [place] [address] Calcium [Mass/Vol] 9.0 mg/dL Normal 8.9-11.1 [facility] Comment on above: Performed By: #### 2 263375, [id number], [id number] ####[facility] [address] [place] [address] Chloride [Moles/Vol] 110 mmol/L Normal 101-111 [facility] Comment on above: Performed By: #### 2 063821, 3096771, [id number] ####[facility] [address] [place] [address] CO2 [Moles/Vol] 24 mmol/L Normal 21-31 [facility] Comment on above: Performed By: #### 2 684861, 4355508, [id number] ####[facility] [address] [place] [address] Creatinine [Mass/Vol] 0.6 mg/dL Normal 0.5-1.3 [facility] Comment on above: Performed By: #### 2 720649, 1086079, [id number] ####[facility] [address] [place] [address] Glucose [Mass/Vol] 103 mg/dL Normal 55-199 [facility] Comment on above: Result Comment: If t his glucose result represents a fasting glucose, interpretation should refer to the following reference range: 55-99 mg/dL Performed By: #### 2 848502, [id number], [id number] ####[facility] [address] [place] [address] Potassium [Moles/Vol] 3.9 mmol/L Normal 3.5-5.3 [facility] Comment on above: Performed By: #### 2 412559, 0378824, [id number] ####[facility] [address] [place] [address] Sodium [Moles/Vol] 139 mmol/L Normal 135-145 [facility] Comment on above: Performed By: #### 2 707857, 8240995, [id number] ####[facility] [address] [place] [address] Urea nitrogen [Mass/Vol] 13 mg/dL Normal 5-21 [facility] Comment on above: Performed By: #### 2 363023, 5843920, [id number] ####[facility] [address] [place] [address] Urea nitrogen/Creatinine [Mass ratio] 22 No Units High 10-20 [facility] Comment on above: Performed By: #### 2 101084, 2781116, [id number] ####[facility] [address] [place] [address] CBC w/Indiceson 01-19-2023 Erythrocyte distribution width (RBC) [Ratio] 13.7 % Normal 10.9-14.2 [facility] Comment on above: Performed By: #### 2 376046, 0469502, [id number] ####[facility] [address] [place] [address] Hematocrit (Bld) [Volume fraction] 43.5 % Normal 34.0-46.0 [facility] Comment on above: Performed By: #### 2 481663, 0958517, [id number] ####[address] [address] Hemoglobin (Bld) [Mass/Vol] 14.8 g/dL Normal 12.0-16.0 [facility] Comment on above: Performed By: #### 2 843125, 4451117, 44062473 ####[place] [id number] MCH (RBC) [Entitic mass] 32.5 pg Normal 27.0-34.0 [facility] Comment on above: Performed By: #### 2 722734, 4520008, [id number] ####[address] [address] MCHC (RBC) [Mass/Vol] 34.2 g/dL Normal 31.4-36.0 [facility] Comment on above: Performed By: #### 2 477966, 5399579, 61631382 ####[address] [address] MCV (RBC) [Entitic vol] 95.2 fL Normal 80.0-100.0 F [facility] Comment on above: Performed By: #### 2 657417, 7866479, [id number] ####[address] [address] Platelet mean volume (Bld) [Entitic vol] 7.6 fL Normal 6.4-10.8 [facility] Comment on above: Performed By: #### 2 522221, 5572843, 56954030 ####[address] [address] Platelets (Bld) [#/Vol] 247.0 E9/L Normal 150.0-500.0 [facility] Comment on above: Performed By: #### 2 862314, 7681582, [id number] ####[facility] [address] [place] [address] RBC (Bld) [#/Vol] 4.6 E12/L Normal 4.3-5.9 [facility] Comment on above: Performed By: #### 2 163739, 1868216, [id number] ####[facility] [address] [place] [address] WBC corrected for nucl RBC Auto (Bld) [#/Vol] 5.1 E9/L Normal 4.0-11.0 [facility] Comment on above: Performed By: #### 2 860189, 9241415, [id number] ####[facility] [address] [place] [address] CHEMISTRYOrdered By: SYSTEM SYSTEM on 01-19-2023 Anion gap [Moles/Vol] 9 mmol/L Normal 6 - 16 mEq/L [facility] Remisol Calcium [Mass/Vol] 9.0 mg/dL Normal 8.9 - 11. 1 mg/dL [facility] Chloride [Moles/Vol] 110 mmol/L Normal 101 - 1 11 mmol/L [facility] CO2 [Moles/Vol] 24 mmol/L Normal 21 - 31 mmol/L [facility] Creatinine [Mass/Vol] 0.6 mg/dL Normal 0.5 - 1.3 mg/dL [facility] Remisol GFR/1.73 sq M.predicted among non-blacks MDRD (S/P/Bld) [Vol rate/Area] 98 mL/min/1.73 m2 Normal >=59mL/min/1 .73 m2 [facility] Chem S Glucose [Mass/Vol] 103 mg/dL Normal 55 - 199 mg/dL [facility] Potassium [Moles/Vol] 3.9 mmol/L Normal 3.5 - 5.3 mmol/L [facility] Sodium [Moles/Vol] 139 mmol/L Normal 135 - 145 mmol/L [facility] Urea nitrogen [Mass/Vol] 13 mg/dL Normal 5 - 21 mg/dL [facility] Remisol Urea nitrogen/Creatinine [Mass ratio] 22 mg/mg High [facility] Remisol Consent for Treatmenton 01-01 Consent for Treatment [id number]#1 .00CD:127 Normal [facility] HEMATOLOGYOrdered By: Guru Foley on 01-19-2023 Erythrocyte distribution width (RBC) [Ratio] 13.7 % Normal 10.9 - 14.2 % [facility] HemeAutoSS Hematocrit (Bld) [Volume fraction] 43.5 % Normal 34.0 - 46.0 % [facility] HemeAutoSS Hemoglobin (Bld) [Mass/Vol] 14.8 g/dL Normal 12.0 - 16.0 gm/dL [facility] HemeAutoSS MCH (RBC) [Entitic mass] 32.5 pg Normal 27.0 - 34.0 pg [facility] HemeAutoSS MCHC (RBC) [Mass/Vol] 34.2 g/dL Normal 31.4 - 36.0 gm/dL [facility] HemeAutoSS MCV (RBC) [Entitic vol] 95.2 fL Normal 80.0 - 100.0 fL [facility]eAuto[facility] Platelet mean volume (Bld) [Entitic vol] 7.6 fL Normal 6.4 - 10.8 fL [facility] HemeAutoSS Platelets (Bld) [#/Vol] 247.0 E9/L Normal 150. 0 - 500.0 E9/L [facility] HemeAutoSS RBC (Bld) [#/Vol] 4.6 E12/L Normal 4.3 - 5.9 E12/L [facility] HemeAutoSS WBC corrected for nucl RBC Auto (Bld) [#/Vol] 5.1 E9/L Normal 4.0 - 11.0 E9/L [facility] HemeAutoSS Physician Orderon 01-19-2023 Physician Order [id number]# 1.00CD:127 Normal [facility] eGFRon 01-19-2023 GFR/1.73 sq M.predicted among non-blacks MDRD (S/P/Bld) [Vol rate/Area] 98 mL/min/1.73 m2 Normal >=59 [facility] Comment on above: Order Comment: Order added by Discern Expert. Result Comment: Rehabilitation Worker ash kidney disease could be indicated at eGFR's of less than 60 mL/min/1.73m2. Kidney failure is indicated at less than 15 mL/min/1.73m2. Performed By: #### 2 [id number], 8578870, [id number] ####[facility] [address] [place] [address] CHEMISTRYOrdered By: Rian Macias on 08-10-2022 Albumin DL <= 20 mg/L (U) [Mass/Vol] 2.0 microgram/mL Normal 0.0 - 19.0 mcg/mL [facility] Creatinine (U) [Mass/Vol] 33.0 mg/dL Invalid Interpretation Code [facility] Remisol Microalb/Cr Ratio 6.1 mg/gm Cr Normal 0.0 - 30.0 mg/gm Cr [facility] Rem[facility] CHEMISTRYOrdered By: SYSTEM SYSTEM on 08-10-2022 Albumin [Mass/Vol] 4.4 g/dL Normal 3.3 - 5.0 gm/dL [facility] Albumin/Globulin [Mass ratio] 1.2 {ratio} Normal 1.1 - 2.2 [facility] ALP [Catalytic activity/Vol] 52 [iU]/d Normal 21 - 98 Int._Unit/L [facility] ALT No additional P-5'-P [Catalytic activity/Vol] 17 [iU]/d Normal 6 - 46 Int._Unit/L [facility] Comment on above: Result Comment: 'Spe cimen hemolyzed, result may be affected. Recommend redraw.' Anion gap [Moles/Vol] 21 mmol/L High 6 - 16 mEq/L F [facility] Rem[facility] AST [Catalytic activity/Vol] 31 [iU]/d Normal 5 - 43 Int._Unit/L [facility] Comment on above: Result Comment: 'Spe cimen hemolyzed, result may be affected. Recommend redraw.' Bilirubin [Mass/Vol] 0.8 mg/dL Normal 0.0 - 1 .1 mg/dL [facility] Comment on above: Result Comment: 'Spe cimen hemolyzed, result may be affected. Redraw is recommended.' Calcium [Mass/Vol] 9.4 mg/dL Normal 8.9 - 11. 1 mg/dL [facility] Chloride [Moles/Vol] 108 mmol/L Normal 101 - 1 11 mmol/L [facility] Cholesterol [Mass/Vol] 192 mg/dL Normal 120 - 200 mg/dL [facility] Cholesterol in HDL [Mass/Vol] 72 mg/dL Invalid Interpretation Code [facility] Cholesterol in LDL [Mass/Vol] 103 mg/dL Normal <=129mg/dL [facility] Cholesterol in VLDL [Mass/Vol] 17 mg/dL Normal 7 - 40 mg/dL [facility] CO2 [Moles/Vol] 15 mmol/L Low 21 - 31 mmol/L [facility] Creatinine [Mass/Vol] 0.9 mg/dL Normal 0.5 - 1.3 mg/dL [facility] CRP [Mass/Vol] mg/dL Normal <=1.9mg/dL [facility] Remis ol GFR/1.73 sq M.predicted among blacks MDRD (S/P/Bld) [Vol rate/Area] mL/min/1.73 m2 Normal >=59mL/min/1 .73 m2 [facility] Chem S GFR/1.73 sq M.predicted among non-blacks MDRD (S/P/Bld) [Vol rate/Area] mL/min/1.73 m2 Normal >=59mL/min/1 .73 m2 [facility] Chem S Globulin (S) [Mass/Vol] 3.7 g/dL Normal 1.4 - 4.0 gm/dL [facility] Glucose [Mass/Vol] 78 mg/dL Normal 55 - 199 mg/dL [facility] Potassium [Moles/Vol] 5.1 mmol/L Normal 3.5 - 5.3 mmol/L [facility] Comment on above: Result Comment: 'Spe cimen hemolyzed. Result may be affected. Redraw is recommended.' Protein [Mass/Vol] 8.1 g/dL High 6.0 - 7.8 gm/dL [facility] Sodium [Moles/Vol] 139 mmol/L Normal 135 - 145 mmol/L [facility] Triglyceride [Mass/Vol] 84 mg/dL Normal <=149mg/dL F [facility] Urea nitrogen [Mass/Vol] 13 mg/dL Normal 5 - 21 mg/dL [facility] Urea nitrogen/Creatinine [Mass ratio] 14 mg/mg Normal 10 - 20 [facility] HEMATOLOGYOrdered By: SYSTEM SYSTEM on 08-10-2022 Basophils/100 WBC (Bld) 0.8 % Normal 0.0 - 2.0 % [facility]eAuto[facility] Basophils/Leukocytes Auto (Bld) [Pure # fraction] 0.0 E9/L Normal 0.0 - 0.2 E9/L [facility] Eosinophils/100 WBC (Bld) 2.3 % Normal 0.0 - 8.0 % [facility] Eosinophils/Leukocytes Auto (Bld) [Pure # fraction] 0.1 E9/L Normal 0.0 - 0.5 E9/L [facility] Lymphocytes/100 WBC (Bld) 38.5 % Normal 14.0 - 50.0 % [facility]eAuto[facility] Lymphocytes/Leukocytes Auto (Bld) [Pure # fraction] 1.9 E9/L Normal 1.0 - 4.0 E9/L [facility] Monocytes/100 WBC (Bld) 12.1 % Normal 4.0 - 14.0 % [facility]eAuto[facility] Monocytes/Leukocytes Auto (Bld) [Pure # fraction] 0.6 E9/L Normal 0.2 - 1.0 E9/L [facility] Neutrophils/100 WBC (Bld) 46.3 % Normal 36.0 - 75.0 % [facility] Neutrophils/Leukocytes Auto (Bld) [Pure # fraction] 2.3 E9/L Normal 2.0 - 7.5 E9/L [facility] HEMATOLOGYOrdered By: Della Ewing on 08-10-2022 Erythrocyte distribution width (RBC) [Ratio] 13.4 % Normal 10.9 - 14.2 % [facility] Hematocrit (Bld) [Volume fraction] 44.7 % Normal 34.0 - 46.0 % [facility] Hemoglobin (Bld) [Mass/Vol] 15.3 g/dL Normal 12.0 - 16.0 gm/dL [facility] MCH (RBC) [Entitic mass] 31.1 pg Normal 27.0 - 34.0 pg [facility] MCHC (RBC) [Mass/Vol] 34.2 g/dL Normal 31.4 - 36.0 gm/dL [facility] MCV (RBC) [Entitic vol] 90.9 fL Normal 80.0 - 100.0 fL [facility] Platelet mean volume (Bld) [Entitic vol] 9.4 fL Normal 6.4 - 10.8 fL [facility] Platelets (Bld) [#/Vol] 102.0 E9/L Low 150. 0 - 500.0 E9/L [facility] RBC (Bld) [#/Vol] 4.9 E12/L Normal 4.3 - 5.9 E12/L [facility] WBC corrected for nucl RBC Auto (Bld) [#/Vol] 5.0 E9/L Normal 4.0 - 11.0 E9/L [facility] HEMATOLOGYOrdered By: Nata Dave on 08-10-2022 Sed Rate Automated 9 mm/h Normal 0 - 34 mm/hr [facility] URINALYSISOrdered By: Meliza Liao on 08-10-2022 Bacteria LM Ql (Urine sed) Trace /HPF Normal Trace/HPF [facility] UA Auto SS Bilirubin Ql (U) Negative (08/10/22 11:03 AM) Normal Negative [facility] UA Auto SS Clarity (U) Clear (08/10/22 11:03 AM) Normal Clear [facility] UA Auto SS Color (U) Yellow (08/10/22 11:03 AM) Normal Yellow [facility] UA Auto SS Epithelial cells.squamous LM.HPF (Urine sed) [#/Area] 0-2 /HPF Normal 0-2/HPF [facility] UA Aut o SS Glucose Test strip (U) [Mass/Vol] Negative (08/10/22 11:03 AM) Normal Negative [facility] UA Auto SS Hemoglobin Ql (U) 1+ *ABN* (08/10/22 11:03 AM) Invalid Interpretation Code Negative [facility] UA Auto SS Ketones (U) [Mass/Vol] Negative (08/10/22 11:03 AM) Normal Negative [facility] UA Auto SS [place].plasma/[place]. RBC (Bld) [Mass ratio] 0-3 /HPF Normal 0-3/HPF [facility] UA A uto SS Nitrite Ql (U) Negative (08/10/22 11:03 AM) Normal Negative [facility] UA Auto SS pH (U) 6.0 *NA* (08/10/22 11:03 AM) Invalid Interpretation Code 5.0 - 9.0 [facility] UA Auto SS Protein (U) [Mass/Vol] Negative (08/10/22 11:03 AM) Normal Negative [facility] UA Auto SS Specific gravity (U) [Rel density] <=1.005 *NA* (08/10/22 11:03 AM) Invalid Interpretation Code 1.005 - 1.030 [facility] UA Auto SS UA Spec Desc Clean Catch (08/10/22 11:03 AM) Normal [facility] UA Auto SS Urobilinogen Qn (U) 0.4452607 {Awais'U}/dL Normal 0.0 - 1.0 EU/dL [facility] UA Auto SS WBC Auto Ql (U) Trace *ABN* (08/10/22 11:03 AM) Invalid Interpretation Code Negative [facility] UA Auto SS WBC LM.HPF (Urine sed) [#/Area] 0-5 /HPF Normal 0-5/HPF [facility] UA Auto SS SCREENING MAMMOGRAM W/EDGAR, BILATERAL*on 03-17-2022 SCREENING MAMMOGRAM W/EDGAR, BILATERAL* CLINICAL HISTORY: Screening Mammogram COMPARISON: Priors from 2020, 2019, 2018, 2016 TECHNIQUE: 2D and 3D mammogram imaging of both breasts was performed. RESULT: DENSITY: There are scattered areas of fibroglandular density. Asymmetry in the upper outer quadrant of the left breast at mid to posterior depth, best appreciated on the MLO view. Further evaluation with spot compression views and possible ultrasound recommended. Otherwise stable asymmetries. Benign calcifications including vascular calcifications, unchanged. IMPRESSION: BIRADS 0 : ADDITIONAL IMAGING EVALUATION NEEDED FOLLOW-UP: Recall now as above. DENSITY: Scattered MAMMOGRAPHY IS VERY IMPORTANT TO YOUR HEALTH. THE CURRENT [place] [employer] AND [employer]WORK GUIDELINES RECOMMENDS ANNUAL MAMMOGRAPHY BEGINNING AT AGE 40 THIS FACILITY USES A REMINDER SYSTEM TO ENSURE ALL PATIENTS RECEIVE REMINDER NOTIFICATIONS AT THE APPROPRIATE TIME BASED ON THE RECOMMENDATIONS OF THIS EXAM. Board Certified Radiologist. Accredited by the ACR and FDA. Report reported and signed by Bassem Brar on 03/17/2022 1016 Normal [facility] XR Ribs w/ PA Chest Right*on 05-21-2021 XR Ribs w/ PA Chest Right* COMPARISON: date TECHNIQUE: Upright PA and right rib views were obtained. FINDINGS: Heart is normal in size. Lungs are clear and well expanded. No pleural effusion or pneumothorax. The bony thorax is unremarkable. There is no evidence of rib fracture. IMPRESSION: There are no acute changes and Report reported and signed by RAIN NICHOLAS on 05/21/2021 1610 Normal [facility] [employer] Automated erythrocytes count in urine sediment (number/area)on 08-25-2020 RBC Auto (Urine sed) [#/Area] 0-1 [HPF] [facility] Automated leukocytes count i n urine sediment (number/area)on 08-25-2020 WBC Auto (Urine sed) [#/Area] 0-1 [HPF] [facility] Basophils Auto (Bld) [#/Vol] on 08-25-2020 Basophils (Bld) [#/Vol] 0.0 10*3/uL 0.0-0.2 [facility] Basophils/100 WBC Auto (Bld) on 08-25-2020 Basophils/100 WBC (Bld) 0.9 % F [facility] Bilirubin Test strip Ql (U)o n 08-25-2020 Bilirubin Ql (U) Negative Negative [facility] Blood hemoglobin measurement (mass/volume)on 08-25-2020 Hemoglobin (Bld) [Mass/Vol] 11.8 g/dL 11.8-15.4 [facility] Blood leukocytes automated c ount (number/volume)on 08-25-2020 WBC (Bld) [#/Vol] 4.6 10*3/uL 4.5-11.0 [facility] Color Auto (U)on 08-25-2020 Color (U) Yellow Yellow [facility] Creatinine and Glomerular fi ltration rate.predicted panel (S/P/Bld)on 08-25-2020 Creatinine [Mass/Vol] 0.74 mg/dL 0.44-1.03 [facility] Eosinophils Auto (Bld) [#/Vo l]on 08-25-2020 Eosinophils (Bld) [#/Vol] 0.0 10*3/uL 0.0-0.45 [facility] Eosinophils/100 WBC Auto (Bl d)on 04-26-2021 Eosinophils/100 WBC (Bld) 0.1 % [facility] Erythrocyte distribution wid th Auto (RBC) [Ratio]on 08-25-2020 Erythrocyte distribution width (RBC) [Ratio] 17.4 % 11.9-15.3 [facility] Erythrocyte sedimentation ra te by Photometric methodon 08-25-2020 ESR Photometric method (Bld) [Velocity] 36 mm/hr 0-29 [facility] Estimated glomerular filtrat ion rate (GFR) non- Americanon 08-25-2020 GFR/1.73 sq M.predicted among non-blacks MDRD (S/P/Bld) [Vol rate/Area] > 60 mL/Min [facility] Hematocrit Auto (Bld) [Volum e fraction]on 08-25-2020 Hematocrit (Bld) [Volume fraction] 35.9 % 34.0-46.4 [facility] Ketones Auto test strip (U) [Mass/Vol]on 08-25-2020 Ketones (U) [Mass/Vol] Negative Negative Fi [facility] - Hematology and Cell countson 08-25-2020 Nucleated RBC/100 WBC (Bld) [Ratio] 0.3 % 0-0.5 [facility] Laboratory - Urinalysison Hyaline casts LM Ql (Urine sed) 0-8 [LPF] [facility] Lymphocytes Auto (Bld) [#/Vo l]on 08-25-2020 Lymphocytes (Bld) [#/Vol] 1.5 10*3/uL 1.00-4.8 [facility] Lymphocytes/100 WBC Auto (Bl d)on 08-25-2020 Lymphocytes/100 WBC (Bld) 33.4 % [facility] MCH Auto (RBC) [Entitic mass ]on 08-25-2020 MCH (RBC) [Entitic mass] 26.7 pg 24.7-34.3 [facility] MCHC Auto (RBC) [Mass/Vol]on 08-25-2020 MCHC (RBC) [Mass/Vol] 32.8 g/dL 32.0-35.0 [facility] MCV Auto (RBC) [Entitic vol] on 08-25-2020 MCV (RBC) [Entitic vol] 81.3 fL 80-100 F [facility] Monocytes Auto (Bld) [#/Vol] on 08-25-2020 Monocytes (Bld) [#/Vol] 0.5 10*3/uL 0.0-0.8 [facility] Monocytes/100 WBC Auto (Bld) on 08-25-2020 Monocytes/100 WBC (Bld) 11.1 % F [facility] Neutrophils Auto (Bld) [#/Vo l]on 08-25-2020 Neutrophils (Bld) [#/Vol] 2.5 10*3/uL 1.8-7.7 [facility] Neutrophils/100 WBC Auto (Bl d)on 08-25-2020 Neutrophils/100 WBC (Bld) 54.5 % [facility] Nitrite Test strip Ql (U)on 08-25-2020 Nitrite Ql (U) Negative Negative [facility] No Panel Informationon 08-25 Estimated GFR () > 60 mL/Min [facility] Comment on above: GFR estimated refere nce range: According to KDOQI guidelines, <60 ml/min/1.73m2 is sufficient to diagnose a patient with chronic kidney disease. Pharmacy Creatinine Clearance (Chem N/A [facility] Platelet mean volume Auto (B ld) [Entitic vol]on 08-25-2020 Platelet mean volume (Bld) [Entitic vol] 8.0 fL 6.3-10.7 [facility] Platelets Auto (Bld) [#/Vol] on 08-25-2020 Platelets (Bld) [#/Vol] 243 10*3/uL 150-450 [facility] Protein Auto test strip (U) [Mass/Vol]on 08-25-2020 Protein (U) [Mass/Vol] Negative Negative [facility] RBC Auto (Bld) [#/Vol]on RBC (Bld) [#/Vol] 4.42 10*6/uL 3.60-5.00 [facility] Specific gravity Auto test s trip (U) [Rel density]on 08-25-2020 Specific gravity (U) [Rel density] 1.009 1.001-1.030 [facility] Squamous epithelial cells de tection in urine sediment by light microscopyon 08-25-2020 Epithelial cells.squamous LM Ql (Urine sed) 0-1 [HPF] [facility] Urine bacteria detection by automated methodon 08-25-2020 Bacteria Auto Ql (U) None seen None Seen [facility] Urine clarity by refractomet ry automatedon 08-25-2020 Clarity Refractometry automated (U) Clear Clear [facility] Urine glucose measurement by automated test strip (mass/volume)on 08-25-2020 Glucose Auto test strip (U) [Mass/Vol] Normal mg/dL Normal [facility] Urine hemoglobin detection b y automated test stripon 08-25-2020 Hemoglobin Auto test strip Ql (U) Negative Negative [facility] Urine leukocyte esterase det ection by automated test stripon 08-25-2020 Leukocyte esterase Auto test strip Ql (U) 1+ Negative [facility] Urobilinogen Auto test strip (U) [Mass/Vol]on 08-25-2020 Urobilinogen (U) [Mass/Vol] Normal mg/dL Normal [facility] pH Auto test strip (U)on pH (U) 5.5 [pH] 5.0-9.0 [facility] Vital Signs Date Time Vital Sign Value Performing Clinician Facility 01-21-2024 12:30-0400 Diastolic blood pressure 73 mm[Hg] [facility] 01-21-2024 12:30-0400 Heart rate 74 /min [facility] 01-21-2024 12:30-0400 Mean blood pressure 97 mm[Hg] José Belle [facility] 01-21-2024 12:30-0400 Respiratory rate 16 /min José Belle [facility] 01-21-2024 12:30-0400 SaO2% (BldA) [Mass fraction] 100 % José [employer] [facility] 01-21-2024 12:30-0400 Systolic blood pressure 146 mm[Hg] José Campbell [facility] 01-21-2024 12:16-0400 Heart rate 76 /min José Belle [facility] 01-21-2024 12:16-0400 SaO2% (BldA) [Mass fraction] 100 % José Belle [facility] 01-21-2024 11:46-0400 Heart rate 93 /min José Belle [facility] 01-21-2024 11:46-0400 SaO2% (BldA) [Mass fraction] 100 % José Belle [facility] 01-21-2024 11:28-0400 Body temperature 97.88 [degF] José Belle [facility] 01-21-2024 11:28-0400 Diastolic blood pressure 105 mm[Hg] José Belle [facility] 01-21-2024 11:28-0400 Heart rate 103 /min José Belle [facility] 01-21-2024 11:28-0400 Respiratory rate 18 /min José Belle [facility] 01-21-2024 11:28-0400 Systolic blood pressure 161 mm[Hg] José Belle [facility] 09-08-2023 09:20-0400 Blood Pressure Location JOLEEN ADAN [facility] 09-08-2023 09:20-0400 Body temperature 98.06 [degF] JOLEEN ADAN [facility] 09-08-2023 09:20-0400 Diastolic blood pressure 71 mm[Hg] JOLEEN ADAN [facility] 09-08-2023 09:20-0400 Heart rate 71 /min JOLEEN ADAN [facility] 09-08-2023 09:20-0400 Respiratory rate 16 /min JOLEEN ADAN [facility] 09-08-2023 09:20-0400 Systolic blood pressure 118 mm[Hg] JOLEEN ADAN [facility] 05-30-2023 09:30-0500 Diastolic blood pressure 86 mm[Hg] MD Valerie Morse Work Phone: [facility] 05-30-2023 09:30-0500 Heart rate 82 /min MD Valerie Morse Work Phone: [facility] 05-30-2023 09:30-0500 Respiratory rate 18 /min MD Valerie Morse Work Phone: [facility] 05-30-2023 09:30-0500 Systolic blood pressure 131 mm[Hg] MD Valerie Morse Work Phone: [facility] 05-31-2022 09:00-0500 Body temperature 98.2 [degF] MD Valerie Morse Work Phone: [facility] 05-31-2022 09:00-0500 SaO2% (BldA) [Mass fraction] 96 % MD Valerie Morse Work Phone: [facility] Encounters Encounter Date Encounter Type Care Provider Facility Start: 01-21-2024 End: 01-21-2024 Emergency department patient visit José Campbell [facility] Start: 12-14-2023 End: 12-14-2023 Patient encounter procedure MD Valerie Morse Work Phone: [facility] [address] Work Phone: Start: 12-14-2023 End: 12-14-2023 ambulatory MD Valerie Morse Work Phone: [facility] Work Phone: Start: 12-13-2023 End: 12-13-2023 ambulatory VALERIE MORSE Not Available Start: 11-07-2023 End: 11-07-2023 ambulatory Richie LI Facility:[facility] Start: 11-07-2023 End: 11-07-2023 Patient encounter procedure Richie LI [facility] Start: 09-19-2023 End: 09-19-2023 ambulatory PA-C JOLEEN ADAN Facility:[facility] Start: 09-19-2023 End: 09-19-2023 Patient encounter procedure JOLEEN ADAN [facility] Start: 09-08-2023 End: 09-08-2023 ambulatory PA-C JOLEEN ADAN Facility:[facility] Start: 09-08-2023 End: 09-08-2023 Lab Drop off JOLEEN ADAN [facility] Start: 09-08-2023 End: 09-08-2023 ambulatory PA-C JOLEEN BALLARDRY Facility: [place] Start: 09-08-2023 End: 09-08-2023 Patient encounter procedure JOLEEN ADAN [facility] Start: 08-25-2023 End: 08-25-2023 ambulatory VALERIE MORSE Not Available Start: 08-16-2023 End: 08-16-2023 ambulatory JOHNATHAN PAYNE Facility:[facility] Start: 08-16-2023 End: 08-16-2023 Patient encounter procedure JOHNATHAN PAYNE [facility] Start: 07-12-2023 End: 07-12-2023 ambulatory BILLY MEYERS Not Available Start: 06-15-2023 End: 06-15-2023 Patient encounter procedure MD Valerie Morse Work Phone: [facility] [address] Work Phone: Start: 06-15-2023 End: 06-15-2023 ambulatory MD Valerie Morse Work Phone: [facility] Work Phone: Start: 05-30-2023 End: 05-30-2023 ambulatory Valerie Morse Facility:[facility] Start: 05-30-2023 Registered Recurring MD Valerie Morse Work Phone: [facility] Work Phone: Start: 05-09-2023 End: 05-09-2023 ambulatory VALERIE Jamil MINI Facility:[facility] Start: 05-09-2023 End: 05-09-2023 Patient encounter procedure VALERIE MORSE [facility] Start: 04-14-2023 End: 04-14-2023 ambulatory JOHNATHAN PAYNE Not Available Start: 04-12-2023 End: 06-30-2023 ambulatory MORALES LACY JR Facility:[facility] Start: 03-21-2023 End: 03-21-2023 ambulatory MORALES DUNLAP Not Available Start: 01-27-2023 End: 01-27-2023 ambulatory VALERIE MORSE Facility:[facility] Start: 01-27-2023 End: 01-27-2023 Patient encounter procedure VALERIE MORSE [facility] Start: 01-19-2023 End: 01-19-2023 ambulatory VALERIE MORSE Facility:[facility] Start: 01-19-2023 End: 01-19-2023 Patient encounter procedure VALERIE MORSE [facility] Start: 08-10-2022 End: 08-10-2022 Patient encounter procedure AVLERIE MORSE [facility] Start: 08-25-2020 End: 08-25-2020 Patient encounter procedure Valerie Morse Work Phone: [facility] [address] Start: 01-03-2018 Patient encounter procedure GABRIELLE GREENE Facility:[facility] Start: 09-14-2017 End: 09-15-2017 Patient encounter procedure AIDA NG Facility:[facility] Procedures Date Procedure Procedure Detail Performing Clinician Start: 12-15-2017 Cystourethroscopy wi th dilation of urethral stricture VALERIE MARNIEWILMAR Colonoscopy VALERIE MARNIEWILMAR Hysterectomy VALERIE MARNIEWILMAR Plan of Treatment Date Care Activity Detail Author Complement C3 [Mass/ volume] in Serum or Plasma [facility] Complement C3 [Mass/ volume] in Serum or Plasma [facility] Complement C4 [Mass/ volume] in Serum or Plasma [facility] Complement C4 [Mass/ volume] in Serum or Plasma [facility] enter Immunizations Immunization Date Immunization Notes Care Provider Fa [facility] 01-25-2023 influenza virus vaccine, unspecified formulation JOLEEN ADAN [facility] 02-17-2022 influenza virus vaccine, unspecified formulation VALERIE MORSE [facility] 08-11-2021 pneumococcal 20-phil nt conjugate vaccine VALERIE MORSE [facility] 01-27-2021 influenza virus vaccine, unspecified formulation VALERIE MORSE [facility] 07-24-2020 SARS-CoV-2 (COVID-19 ) mRNA BNT-162b2 vax VALERIE AYDLETT [facility] 07-03-2020 SARS-CoV-2 (COVID-19 ) mRNA BNT-162b2 vax VALERIE AYDLETT [facility] 02-15-2020 zoster vaccine recombinant [facility] 01-28-2020 influenza virus vaccine, unspecified formulation [facility] 01-27-2018 influenza virus vaccine, unspecified formulation [facility] 03-01-2017 influenza virus vaccine, unspecified formulation [facility] Payers Date Payer Category Payer Self-pay [id number] 2015 Medicare [id number] 1959 Medicaid [id number] 1959 Medicare [id number] 1955 Unknown [id number] 2.16.84 0.1.582271.3.579.2.593 1955 Unknown [id number] 2.16.84 0.1.832627.3.579.2.593 1955 Unknown [id number] 2.16.8 40.1.025817.3.579.2.727 1955 Unknown [id number] 2.16.8 40.1.271731.3.579.2.727 1955 Unknown [id number] 2.16.8 40.1.433967.3.579.2.727 1955 Unknown [id number] 2.16.8 40.1.836023.3.579.2.727 1955 Unknown [id number] 2.16.8 40.1.836768.3.579.2.727 1955 Unknown [id number] 2.16.8 40.1.569722.3.579.2.727 1955 Unknown [id number] 2.16.8 40.1.970064.3.579.2.727 1955 Unknown [id number] 2.16.8 40.1.895405.3.579.2.727 1955 Unknown [id number] 2.16.84 0.1.472419.3.579.2.1259 1955 Unknown [id number] 2.16.84 0.1.908869.3.579.2.1259 1955 Unknown [id number] 2.16.84 0.1.325289.3.579.2.1259 1955 Unknown [id number] 2.16.840 .1.222565.3.579.2.1259 1955 Unknown [id number] 2.16.840 .1.093671.3.579.2.1259 1955 Unknown [id number] 2.16.840 .1.053419.3.579.2.1259 1955 Unknown [id number] 2.16.840 .1.816885.3.579.2.1259 1955 Unknown [id number] 2.16.8 40.1.435829.3.579.2.727 1955 Unknown [id number] 2.16.8 40.1.742074.3.579.2.727 1955 Unknown [id number] 2.16.8 40.1.698573.3.579.2.727 1955 Unknown [id number] 2.16.8 40.1.337747.3.579.2.727 Unknown [id number] Unknown Adán BC/BS [id number] Unknown [id number] 2.16.8 40.1.500421.3.579.2.531 Unknown [id number] 2.16.8 40.1.779123.3.579.2.531 Unknown [id number] 2.16.8 40.1.761827.3.579.2.531 Social History Date Type Detail Facility Tobacco smoking stat us NDIS Unknown if ever smoked [facility] Start: 1955 Sex Assigned At Female [facility] Start: 10-23-2019 End: 09-08-2023 Tobacco smoking status Never smoked tobacco (finding) [facility] Sex Assigned At Female [facility] Tobacco smoking status Never [facility] Goals Date Patient Goal Desired Activity /State Functional Status Date Assessment Result Facility 01-21-2024 Functional Status N/A [facility] 09-08-2023 Functional Status N/A [facility] Clinical Notes 08-10-2022 to 01-21-2024 Note Date & Type Note Facility 01-21-2024 Evaluation + Plan note Extrac serafin from: Title:ED Note Author:José Campbell DO Date:01/01 05/25 Bronchitis, acute (J20.9: Ac [place] bronchitis, unspecified) Orders: albuterol, 2 puff(s), Inhalation, q6hr for 7 day(s), 6.7 gm, Refill(s) 0, [facility], 165, cm, 01/21/24 11:35:00 EDT, Height/Length Dosing, 60.4, kg, 01/21/24 11:35:00 EDT, Weight Dosing doxycycline, 100 mg = 1 tab(s), Oral, BID, X 7 day(s), # 14 tab(s), Refills(s) 0, Pharmacy: [facility], 165, cm, 01/21/24 11:35:00 EDT, Height/Length Dosing, 60.4, kg, 01/21/24 11:35:00 EDT, Weight Dosing predniSONE, 3, Oral, Daily, X 7 day(s), # 21 tab(s), Refills(s) 0, Pharmacy: [facility], 165, cm, 01/21/24 11:35:00 EDT, Height/Length Dosing, 60.4, kg, 01/21/24 11:35:00 EDT, Weight Dosing ECG 12 Lead Adult Rapid COVID Antigen ([facility]) XR Chest [address] [facility] 09-21-2024 Hospital Discharge instructions Follow Up Care 01/21/2024 11:27:14 With:VALERIE MORSE Address: [address] [place] [address]- Business (1) When:Within 3 Day(s) [facility] 07-08-2024 Hospital Discharge instructions Patient Education 11/07/2023 14:05:22 EU - Cystoscopy Discharge Instructions (Custom) Cystoscopy Voiding after the procedure: there may be some pain, burning, urgency, frequency and blood tinged urine following the procedure. These symptoms usually resolve within 2-5 days. Drink the amount of fluid it takes to keep the urine pink to yellow or clear in color. Drinking enough water and fluids will help to ease any discomfort after your procedure. If you are having problems that seem out of the ordinary, please call. If unable to contact your physician and you feel it is an emergency, go to the nearest emergency room or call 911 Diet you may resume your normal diet. Activity you may resume your normal activities Call if you have a fever over 100 degrees. Follow Up Care 09/13/2023 13:17:51 With:Richie LI Address: [address] [address]- Business (1) When:6 months Comments:Please make a follow-up visit with one of our SEDA's. You had seen Anabel Adan PA-C previously.Pleasefinish your antibiotics and have a great day! I will consider the blood in the urine workup complete at this point. [facility]07-08-2024 NotePatient Education Cystoscopy ? Voiding after the procedure: there may be some pain, burning, urgency, frequency and blood tingedurine following the procedure. These symptoms usually resolve within 2-5 days. Drink the amount of fluid it takes to keep the urine pink to yellow or clear in color. Drinking enough water and fluids will help to ease any discomfort after your procedure. ? If you are having problems that seem out of the ordinary, please call. ? If unable to contact your physician and you feel it is an emergency, go to the nearest emergency room or call 911 ? Diet ? you may resume your normal diet. ? Activity ? you may resume your normal activities ? Call if you have a fever over 100 degrees.[facility] 09-08-2023 Evaluation + Plan note Diagnostic Tests Pending * Urine Cytology ([facility]) 09/08/23 Future Scheduled Tests Radiology* CT Urogram 09/22/23 [facility]05-09-2024 Hospital Discharge instructions Patient Education 09/08/2023 09:51:19 Cystoscopy Cystoscopy Cystoscopy is a procedure that is used to help diagnose and sometimes treat conditions that affect the lower urinary tract. The lower urinary tract includes the bladder and the urethra. The urethra is the tube that drains urine from the bladder. Cystoscopy is done using a thin, tube-shaped instrument with a light and camera at the end (cystoscope). The cystoscope may be hard or flexible, depending on the goal of the procedure. The cystoscope is inserted through the urethra, into the bladder. Cystoscopy may be recommended if you have: Urinary tract infections that keep coming back. Blood in the urine (hematuria). An inability to control when you urinate (urinary incontinence) or an overactive bladder. Unusual cells found in a urine sample. A blockage in the urethra, such as a urinary stone. Painful urination. An abnormality in the bladder found during an intravenous pyelogram (IVP) or CT scan. Cystoscopy may also be done to remove a sample of tissue to be examined under a microscope (biopsy). Tell a health care provider about: Any allergies you have. All medicines you are taking, including vitamins, herbs, eye drops, creams, and rjvb-pdt-jijncqq medicines. Any problems you or family members have had with anesthetic medicines. Any blood disorders you have. Any surgeries you have had. Any medical conditions you have. Whether you are or may be . What are the risks? Generally, this is a safe procedure. However, problems may occur, including: Infection. Bleeding. Allergic reactions to medicines. Damage to other structures or organs. What happens before the procedure? Medicines Ask your health care provider about: Changing or stopping your regular medicines. This is especially important if you are taking diabetes medicines or blood thinners. Taking medicines such as aspirin and ibuprofen. These medicines can thin your blood. Do not take these medicines unless your health care provider tells you to take them. Taking whgi-hhz-ubtyhkc medicines, vitamins, herbs, and supplements. Tests You may have an exam or testing, such as: X-rays of the bladder, urethra, or kidneys. CT scan of the abdomen or pelvis. Urine tests to check for signs of infection. General instructions Follow instructions from your health care provider about eating or drinking restrictions. Ask your health care provider what steps will be taken to help prevent infection. These steps may include: ?Washing skin with a germ-killing soap. ?Taking antibiotic medicine. Plan to have a responsible adult take you home from the hospital or clinic. What happens during the procedure? You will be given one or more of the following: ?A medicine to help you relax (sedative). ?A medicine to numb the area (local anesthetic). The area around the opening of your urethra will be cleaned. The cystoscope will be passed through your urethra into your bladder. Germ-free (sterile) fluid will flow through the cystoscope to fill your bladder. The fluid will stretch your bladder so that your health care provider can clearly examine your bladder guaman. Your doctor will look at the urethra and bladder. Your doctor may take a biopsy or remove stones. The cystoscope will be removed, and your bladder will be emptied. The procedure may vary among health care providers and hospitals. What can I expect after the procedure? After the procedure, it is common to have: Some soreness or pain in your abdomen and urethra. Urinary symptoms. These include: ?Mild pain or burning when you urinate. Pain should stop within a few minutes after you urinate. This may last for up to 1 week. ?A small amount of blood in your urine for several days. ?Feeling like you need to urinate but producing only a small amount of urine. Follow these instructions at home: Medicines Take hhyl-umk-rfpwjql and prescription medicines only as told by your health care provider. If you were prescribed an antibiotic medicine, take it as told by your health care provider. Do notstop taking the antibiotic even if you start to feel better. General instructions Return to your normal activities as told by your health care provider. Ask your health care provider what activities are safe for you. If you were given a sedative during the procedure, it can affect you for several hours. Do not drive or operate machinery until your health care provider says that it is safe. Watch for any blood in your urine. If the amount of blood in your urine increases, call your healthcare provider. Follow instructions from your health care provider about eating or drinking restrictions. If a tissue sample was removed for testing (biopsy) during your procedure, it is up to you to get your test results. Ask your health care provider, or the department that is doing the test, when yourresults will be ready. Drink enough fluid to keep your urine pale yellow. Keep all follow-up visits. This is important. Contact a health care provider if: You have pain that gets worse or does not get better with medicine, especially pain when you urinate. You have trouble urinating. You have more blood in your urine. Get help right away if: You have blood clots in your urine. You have abdominal pain. You have a fever or chills. You are unable to urinate. Summary Cystoscopy is a procedure that is used to help diagnose and sometimes treat conditions that affect the lower urinary tract. Cystoscopy is done using a thin, tube-shaped instrument with a light and camera at the end. After the procedure, it is common to have some soreness or pain in your abdomen and urethra. Watch for any blood in your urine. If the amount of blood in your urine increases, call your healthcare provider. If you were prescribed an antibiotic medicine, take it as told by your health care provider. Do notstop taking the antibiotic even if you start to feel better. This information is not intended to replace advice given to you by your health care provider. Make sure you discuss any questions you have with your health care provider. Document Revised: 12/30/2021 Document Reviewed: 11/28/2020 [employer] Patient Education 2022 [employer]. 09/08/2023 09:39:26 Hematuria, Adult Hematuria, Adult Hematuria is blood in the urine. Blood may be visible in the urine, or it may be identified with a test. This condition can be caused by infections of the bladder, urethra, kidney, or prostate. Otherpossible causes include: Kidney stones. Cancer of the urinary tract. Too much calcium in the urine. Conditions that are passed from parent to child (inherited conditions). Exercise that requires a lot of energy. Infections can usually be treated with medicine, and a kidney stone usually will pass through your urine. If neither of these is the cause of your hematuria, more tests may be needed to identify the cause of your symptoms. It is very important to tell your health care provider about any blood in your urine, even if it ispainless or the blood stops without treatment. Blood in the urine, when it happens and then stops and then happens again, can be a symptom of a very serious condition, including cancer. There is no pain in the initial stages of many urinary cancers. Follow these instructions at home: Medicines Take idzx-usc-oisumyz and prescription medicines only as told by your health care provider. If you were prescribed an antibiotic medicine, take it as told by your health care provider. Do notstop taking the antibiotic even if you start to feel better. Eating and drinking Drink enough fluid to keep your urine pale yellow. It is recommended that you drink 3 4 quarts (2.83.8 L) a day. If you have been diagnosed with an infection, drinking cranberry juice in addition tolarge amounts of water is recommended. Avoid caffeine, tea, and carbonated beverages. These tend to irritate the bladder. Avoid alcohol because it may irritate the prostate (in males). General instructions If you have been diagnosed with a kidney stone, follow your health care provider's instructions about straining your urine to catch the stone. Empty your bladder often. Avoid holding urine for long periods of time. If you are female: ?After a bowel movement, wipe from front to back and use each piece of toilet paper only once. ?Empty your bladder before and after sex. Pay attention to any changes in your symptoms. Tell your health care provider about any changes or any new symptoms. It is up to you to get the results of any tests. Ask your health care provider, or the department that is doing the test, when your results will be ready. Keep all follow-up visits. This is important. Contact a health care provider if: You develop back pain. You have a fever or chills. You have nausea or vomiting. Your symptoms do not improve after 3 days. Your symptoms get worse. Get help right away if: You develop severe vomiting and are unable to take medicine without vomiting. You develop severe pain in your back or abdomen even though you are taking medicine. You pass a large amount of blood in your urine. You pass blood clots in your urine. You feel very weak or like you might faint. You faint. Summary Hematuria is blood in the urine. It has many possible causes. It is very important that you tell your health care provider about any blood in your urine, even ifit is painless or the blood stops without treatment. Take iiyn-cfy-zqrqlhd and prescription medicines only as told by your health care provider. Drink enough fluid to keep your urine pale yellow. This information is not intended to replace advice given to you by your health care provider. Make sure you discuss any questions you have with your health care provider. Document Revised: 12/17/2020 Document Reviewed: 12/17/2020 [employer] Patient Education 2022 XING. Follow Up Care 09/01/2023 10:13:39 With:GUILLERMO DOSS, Richie Correia, URL Address: [facility] [employer] [employer] [place] [address]- When: Unknown Comments:sched cysto/poss UD [facility] [id number] NoteChief Complaint Referral for asymptomatic microscopic hematuria HPI Staff Patient referred by Valerie Morse MD for Asymptomatic Microscopic Hematuria BUN 8 Crea 0.7 GFR 94 drawn 08/16/23 UA Protein- Trace Leuk- 75Leu done 08/16/23 Dysuria: denies Incomplete bladder emptying: denies Hematuria: denies Frequency: denies Urgency: denies Nocturia: 1-2x a night Stream: steady Leaking: denies Post void dripping: denies Wearing pads/ Depends: denies Urge incontinence: denies Stress incontinence: yes Incontinence without Sensory Awareness: denies Abdominal pain: denies Flank pain: denies Sexual complaints: _ History of Present Illness staff HPI reviewed and agree. Review of Systems PHQ Score Initial Depression Screen Score: 0 SCORE no fever, chills, malaise, myalgia. no rash/lesions. no chest pain, palpitations, or SOB. no abdominal pain, nausea, vomiting. no unilateral calf swelling, redness, pain Physical Exam Vitals & Measurements T: 36.7 ?C(Temporal Artery) HR: 71(Peripheral) RR: 16 BP: 118/71 HT: 65 in HT: 165 cm WT: 60 kg WT: 132 lb BMI: 22.04 General: nontoxic, NAD Mouth: moist mucosa Lungs: normal respiratory effort Cardio: regular rate, good distal perfusion Abdomen: nondistended, no suprapubic distention or tenderness, no CVA tenderness Neurologic: Grossly normal Skin: No rashes or suspicious lesions Assessment/Plan Jing is a 68 yo female new pt, previous Dr. Li pt, referred by Dr. Valerie Morse for asymptomatic microscopic hematuria. 1. Microscopic hematuria (R31.29: Other microscopic hematuria) Micro UAs 07/16/21 - 0-3 RBC, 0-5 WBC, 0-2 squam epith. No cx. 08/10/22 - 0-3 RBC, 0-5 WBC, 0-2 squam epith. No cx. 08/16/23 - 4-20 RBC, 0-5 WBC, >10 squam epith. No cx. Hysterectomy 1981. Never a smoker. 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 Hx of Lupus x45 yrs. Recently lost 35lbs without trying. UA today shows trace-intact blood and trace leuks. Denies seeing blood in her urine. States she hasonly seen blood when she wiped and was then started on estrogen cream per [employer], recently had a pap smear. Discussed prior urine samples may have been contaminated which can contribute to hematuria. However has had a microscopic UA done wo evidence of contamination. Offered to proceed with a hematuria workup which would include upper tract imaging, evaluation of the urinary cells with urine cytology and possible a FISH test, and a cystoscopy to r/o lower urinary tract pathology. Pt aware that a distinct etiology of the hematuria may not be clear upon conclusion of the workup. The rationale for this workup has been discussed, and all questions have been answered. Pt would like to proceed. -Urine sample to be sent for cytology -CTU @ [facility] -Will schedule Cysto with possible UD. The procedure risks, benefits, details, and treatment alternatives have been discussed with the patient. These include bleeding, infection, recurrent scar in over 50%, need for repeat dilation or other procedures, no symptom relief with dilation, among others.Full informed consent has been obtained. Will order Local anesthesia. 2. Frequency of urination (R35.0: Frequency of micturition) BBS 17. States she has voided 4x this morning, has been up for 4 hours. Does not feel this is bothersome enough to warrant treatment. -Kegels -reduce bladder irritants 3. Stress incontinence (N39.3: Stress incontinence (female) (male)) Has mild leakage with coughing/sneezing. Not bothersome. -Kegels 4. Postinfective urethral stricture in female (N35.12: Postinfective urethral stricture, not elsewhere classified, female) S/p Cysto/UD 12/15/17 by [facility]. Pt states she has been dilated twice. Good stream. Feels she empties. -possible UD at time of cysto Follow-up With When Contact Information GUILLERMO DOSS, Richie Correia, URL [address] [place], [place] [id number]- Additional Instructions: sched cysto/poss UD Patient Education Hematuria, Adult Documentation recorded by the scrsam Pantoja accurately reflects the services(s) I performed anddecisions made by me. Authenticated by Joleen Adan PA-C on 09/08/2023 10:52:32. IKeisha, personally scribed for Joleen Adan PA-C on 09/08/2023 09:51:36. . 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 Medications Albuterol (Eqv-ProAir HFA) 90 mcg/inh inhalation aerosol, 2 puff(s), Inhalation (more content not included)...[facility]:Result Comment: Electronically Signed By: JOLEEN ADAN PA-C\.br\Date and Time Signed: 09/07/2409:52 EDT\.br\Electronically Co-Signed By: Keisha Pantoja\.br\Date and Time Co-Signed: 09/08/23 09:53 [id number] NoteUrology Cystoscopy Cystoscopy is a procedure that is used to help diagnose and sometimes treat conditions that affect the lower urinary tract. The lower urinary tract includes the bladder and the urethra. The urethra is the tube that drains urine from the bladder. Cystoscopy is done using a thin, tube-shaped instrument with a light and camera at the end (cystoscope). The cystoscope may be hard or flexible, depending on the goal of the procedure. The cystoscope is inserted through the urethra, into the bladder. Cystoscopy may be recommended if you have: ? Urinary tract infections that keep coming back. ? Blood in the urine (hematuria). ? An inability to control when you urinate (urinary incontinence) or an overactive bladder. ? Unusual cells found in a urine sample. ? A blockage in the urethra, such as a urinary stone. ? Painful urination. ? An abnormality in the bladder found during an intravenous pyelogram (IVP) or CT scan. Cystoscopy may also be done to remove a sample of tissue to be examined under a microscope (biopsy). Tell a health care provider about: ? Any allergies you have. ? All medicines you are taking, including vitamins, herbs, eye drops, creams, and bnoo-ihd-tcgxbnd medicines. ? Any problems you or family members have had with anesthetic medicines. ? Any blood disorders you have. ? Any surgeries you have had. ? Any medical conditions you have. ? Whether you are or may be . What are the risks? Generally, this is a safe procedure. However, problems may occur, including: ? Infection. ? Bleeding. ? Allergic reactions to medicines. ? Damage to other structures or organs. What happens before the procedure? Medicines Ask your health care provider about: ? Changing or stopping your regular medicines. This is especially important if you are taking diabetes medicines or blood thinners. ? Taking medicines such as aspirin and ibuprofen. These medicines can thin your blood. Do not take these medicines unless your health care provider tells you to take them. ? Taking pbwm-rmr-vjjwisv medicines, vitamins, herbs, and supplements. Tests You may have an exam or testing, such as: ? X-rays of the bladder, urethra, or kidneys. ? CT scan of the abdomen or pelvis. ? Urine tests to check for signs of infection. General instructions ? Follow instructions from your health care provider about eating or drinking restrictions. ? Ask your health care provider what steps will be taken to help prevent infection. These steps mayinclude: ? Washing skin with a germ-killing soap. ? Taking antibiotic medicine. ? Plan to have a responsible adult take you home from the hospital or clinic. What happens during the procedure? ? You will be given one or more of the following: ? A medicine to help you relax (sedative). ? A medicine to numb the area (local anesthetic). ? The area around the opening of your urethra will be cleaned. ? The cystoscope will be passed through your urethra into your bladder. ? Germ-free (sterile) fluid will flow through the cystoscope to fill your bladder. The fluid will stretch your bladder so that your health care provider can clearly examine your bladder guaman. ? Your doctor will look at the urethra and bladder. Your doctor may take a biopsy or remove stones. ? The cystoscope will be removed, and your bladder will be emptied. The procedure may vary among health care providers and hospitals. What can I expect after the procedure? After the procedure, it is common to have: ? Some soreness or pain in your abdomen and urethra. ? Urinary symptoms. These include: ? Mild pain or burning when you urinate. Pain should stop within a few minutes after you urinate. This may last for up to 1 week. ? A small amount of blood in your urine for several days. ? Feeling like you need to urinate but producing only a small amount of urine. Follow these instructions at home: Medicines ? Take nwob-zot-xbnkbwl and prescription medicines only as told by your health care provider. ? If you were prescribed an antibiotic medicine, take it as told by your health care provider. Do not stop taking the antibiotic even if you start to feel better. General instructions ? Return to your normal activities as told by your health care provider. Ask your health care provider what activities are safe for you. ? If you were given a sedative during the procedure, it can affect you for several hours. Do not drive or operate machinery until your health care provider says that it is safe. ? Watch for any blood in your urine. If the amount of blood in your urine increases, call your health care provider. ? Follow instructions from your health care provider about eating or drinking restrictions. ? If a tissue sample was removed for testing (biopsy) during your procedure, it is up to you to getyour test results. Ask your health care provider, or the department th (more content not included)...[facility] 08-10-2022 Evaluation + Plan note Diagnostic Tests Pending * C3 Complement 08/10/22 * C[facility] Com[facility] No data available [facility] this section [facility] Future Appointments Appointment Date:05/13/2023 12:15:00 PM Scheduled Provider: Location:.[place] [place] Appointment Type:PT Re-Eval 45 (FT[facility] Future Scheduled Tests Radiology* CT Urogram 09/22/23 [facility] Evaluation + Plan note Future Appointments Appointment Date:11/01/2023 10:00:00 AM Scheduled Provider: Location:[facility] Appointment Type:Urology CALL PAT FT Appointment Date:11/07/2023 02:15:00 PM Scheduled Provider: Location:[facility] Appointment Type:Urology FT [facility]ments Information [facility] information available [facility] Work Phone: Hospital Discharge instructions No data available for this [facility] No data available for this section [facility] Summary Purpose Family History No Family History Records FoundNo Family History Records Found No data available for this section No data available for this section No data available for this section No data available for this section No data available for this section No data available for this section No Family History Records Found No data available for this section No Family History Records FoundNo Family History Records FoundNo Family History Records Found No data available for this section No Family History Records FoundNo Family History Records Found Advance Directives No Advanced Directives Records Found Advance Directive Response Recorded Date/ Time Advance Directives No February 09, 2017 9:01am Advance Directive Response Recorded Date/ Time Advance Directives No February 09, 2017 8:01am Chief Complaint and Reason for Visit Chief Complaint M81.0. Additional Source Comments INFORMATION SOURCE (unrecogn ized section and content) DATE CREATED AUTHOR 08/14/2018 [facility] DATE CREATED AUTHOR AUTHOR'S ORGANIZ ATION 03/17/2022 [facility] DATE CREATED AUTHOR AUTHOR'S ORGANIZ ATION 09/21/2023 [facility] DATE CREATED AUTHOR AUTHOR'S ORGANIZ ATION 11/14/2023 [facility] DATE CREATED AUTHOR AUTHOR'S ORGANIZ ATION 12/15/2023 [facility] EPIC DATE CREATED AUTHOR AUTHOR'S ORGANIZ ATION 12/22/2023 [facility] DATE CREATED AUTHOR AUTHOR'S ORGANIZ ATION 01/23/2024 [facility] DATE CREATED AUTHOR AUTHOR'S ORGANIZ ATION 01/26/2024 [facility] Patient Care team informatio n (unrecognized section and content) Team Status: Active Member Role Status Geraldine Morse MD Primary Care Provider Active Team Status: Inactive Member Role Status Geraldine Morse MD Primary Care Provider Active St art: December 14, 2023 End: December 14, 2023 Valerie Piña MD Attending Provider Active St art: December 14, 2023 End: December 14, 2023 Team Status: Active Member Role Status Geraldine Morse MD Primary Care Provide r, Attending Provider, Referring Provider Active Start: May 30, 2023 Team Status: Inactive Member Role Status Geraldine Morse MD Primary Care Provider Active St art: June 15, 2023 End: June 15, 2023 Valerie Piña MD Attending Provider Active St art: June 15, 2023 End: June 15, 2023 Goals (unrecognized section and content) Goals may be documented in a n alternate section FOR RECORDS PERTAINING TO PATIENTS WHO ARE OR HAVE BEEN ENROLLED IN A CHEMICAL DEPENDENCY/SUBSTANCEABUSE PROGRAM, SOME INFORMATION MAY BE OMITTED. This clinical summary was aggregated from multiple sources. Caution should be exercised in using it in the provision of clinical care. This summary normalizes information from multiple sources, and as a consequence, information in this document may materially change the coding, format and clinical context of patient data. In addition, data may be omitted in some cases. CLINICAL DECISIONS SHOULD BE BASED ON THE PRIMARY CLINICAL RECORDS. [email or web address] [facility]. provides no warranty or guarantee of the accuracy or completeness of information in this document.
== END 2024-01-30 21:49 | disposition home or self-care (01) ==
LOC: LAB 21:48
PROVIDERS: Visit Provider Physician Assistant
DX: R87.629 Unspecified abnormal cytological findings in specimens from vagina (principal); Z90.710 Acquired absence of both cervix and uterus
CPT/HCPCS: 88175